=== PATIENT | female | born 1935 | race Caucasian/White ===

== ENCOUNTER 2017-12-12 12:02 | Outpatient (CLI) | payer MEDICARE, MEDICAID, SELFPAY ==
[2017-12-12 13:21] VITALS: BMI 31.0; BMI 68.3
--- NOTE | 2017-12-12 13:25 | XR_ITS ---
XR chest portable HISTORY: ITS.REASON: picc line placement ORDERING PHYSICIAN: Oracio Zapata MD PATIENT AGE: 82 years COMPARISON: 05/31/2012 FINDINGS: There is cardiomegaly without failure.. There are low lung volume with bibasilar atelectatic changes.. Left upper extremity PICC line has been inserted. The tip is in region of the right atrium and could be withdrawn approximately 4 cm No acute bony abnormalities. IMPRESSION: 1. PICC line tip in region of right atrium and should be withdrawn approximately 4 cm. 2. Mild cardiomegaly with bibasilar atelectasis
[2017-12-12 14:20] LABS: Basophils % 0.6 % (0.1-2.0); Eosinophils # 0.3 K/mm3 (0.0-0.4); Eosinophils % 3.9 % (0.1-12.0); Hematocrit 30.9 % (37.0-47.0); Hemoglobin 9.7 g/dL (12.2-16.2); Lymphocytes # 1.7 K/mm3 (0.7-4.5); Lymphocytes % 26.6 K/mm3 (10-50); Mean Corpuscular HGB Conc 31.4 g/dL (31.8-35.4); Mean Corpuscular Hemoglobin 28.1 pg (27.0-31.2); Mean Corpuscular Volume 89.5 fl (81-99); Mean Platelet Volume 7.2 fl (7.4-10.4); Monocytes # 0.5 K/mm3 (0.1-1.0); Monocytes % 7.1 % (1.7-9.3); Neutrophils % 61.9 % (37.0-80.0); Platelet Count 345 K/mm3 (142-424); Red Blood Count 3.45 M/mm3 (4.20-5.40); Red Cell Distribution Width 13.3 % (11.5-17.5); White Blood Count 6.5 K/mm3 (4.8-10.8)
[2017-12-12 14:22] LABS: Anion Gap 6.9 mEq/L (5-15); Blood Urea Nitrogen 34 mg/dL (7-18); Carbon Dioxide 34 mmol/L (21.0-32.0); Chloride 101 mmol/L (98-107); Creatinine Clearance Estimated 25 mL/min (0-300); Creatinine,Serum 1.34 mg/dL (0.55-1.02); Estimated Glomerular Filt Rate 38 ml/min (>60); GFR (African American) 46 ML/MIN (>60); Glucose 105 mg/dL (74-106); Potassium 3.9 mmoL/L (3.5-5.1); Sodium 138 mmol/L (136-145)
[2017-12-12 14:55] VITALS: BP 131/73; PULSE 54; RESP 18; TEMP 36.4
[2017-12-12 15:25] VITALS: BP 171/80; PULSE 51; RESP 18
[2017-12-12 15:55] VITALS: BP 174/75; PULSE 51; RESP 18
[2017-12-12 16:25] VITALS: BP 148/68; PULSE 51; RESP 18
[2017-12-12 16:55] VITALS: BP 164/79; PULSE 51; RESP 18
--- NOTE | 2017-12-12 17:35 | PC.NURSE ---
TOTAL VOLUME INCLUDES NS AND VANCOMYCIN.
== END 2017-12-12 17:25 | disposition home or self-care (01) ==
LOC: INF 12:10
PROVIDERS: PCP Internal Medicine Adolescent Medicine; Visit Provider Internal Medicine Adolescent Medicine
DX: A49.9 Bacterial infection, unspecified (principal)
CPT/HCPCS: 36569; 71045; 80048; 85025; 96365; 96366; C1751; J3370

== ENCOUNTER → 2017-12-14 15:29 | Outpatient (REF) | payer MEDICARE, MEDICAID, SELFPAY ==
[2017-12-14 16:54] LABS: Vancomycin,Trough 12.4 mcg/ml (10.0-20.0)
== END ==
LOC: LAB 15:29
PROVIDERS: Visit Provider Internal Medicine Adolescent Medicine
DX: N39.0 Urinary tract infection, site not specified (principal)
CPT/HCPCS: 80202

== ENCOUNTER 2019-04-08 11:35 | Inpatient (IN) ==
--- NOTE | 2019-04-08 11:30 | Emergency Department Note ---
ED Disposition Clinical Impression: Pneumonia, aspiration Qualifiers: Aspiration pneumonia type: due to gastric secretions Laterality: left Lung location: lower lobe of lung Qualified Code(s): J69.0 - Pneumonitis due to inhalation of food and vomit Disposition: Admitted As Inpatient Condition on Discharge: Fair Referrals: Oracio Zapata MD [Primary Care Provider] - - Critical Care Critical Care Time: No Attestation: On , the high probability of a clinically significant, sudden or life threatening deterioration of the following system(s) required my full and direct attention, intervention and personal management. The time I documented below is in addition to time spent performing reported procedures but includes the following listed in this critical care notation. Medical Decision Making - Alex Inquiry Pt receiving controlled substance: No Vital Signs: 04/08/19 11:05 04/08/19 11:23 04/08/19 11:24 Temperature 99.4 F Temperature Source Rectal Pulse Rate 66 Pulse Rate [Right Brachial] 68 69 Respiratory Rate 24 Blood Pressure [Right Arm] 117/82 160/51 H Blood Pressure Mean [Right Arm] 93 87 Blood Pressure Source [Right Arm] Automatic Cuff Automatic Cuff Blood Pressure Position [Right Arm] Sitting Sitting 02 Sat by Pulse Oximetry 90 L 93 L Oxygen Delivery Method Room Air 04/08/19 11:47 04/08/19 11:51 04/08/19 12:06 Temperature Temperature Source Pulse Rate Pulse Rate [Right Brachial] 78 72 70 Respiratory Rate Blood Pressure [Right Arm] 141/100 H 130/50 L 120/44 L Blood Pressure Mean [Right Arm] 113 76 69 Blood Pressure Source [Right Arm] Automatic Cuff Automatic Cuff Automatic Cuff Blood Pressure Position [Right Arm] Sitting Sitting Supine 02 Sat by Pulse Oximetry 96 96 94 L Oxygen Delivery Method Room Air Room Air Room Air 04/08/19 13:34 04/08/19 14:02 04/08/19 15:00 Temperature 98.6 F Temperature Source Oral Pulse Rate Pulse Rate [Right Brachial] 67 64 64 Respiratory Rate 22 Blood Pressure [Right Arm] 117/52 L 122/51 L 124/56 L Blood Pressure Mean [Right Arm] 73 74 78 Blood Pressure Source [Right Arm] Automatic Cuff Automatic Cuff Automatic Cuff Blood Pressure Position [Right Arm] Sitting Supine Supine 02 Sat by Pulse Oximetry 93 L 95 96 Oxygen Delivery Method Room Air Room Air Nasal Cannula 04/08/19 15:30 Temperature 98.5 F Temperature Source Oral Pulse Rate Pulse Rate [Right Brachial] 58 L Respiratory Rate 20 Blood Pressure [Right Arm] 103/60 L Blood Pressure Mean [Right Arm] 74 Blood Pressure Source [Right Arm] Automatic Cuff Blood Pressure Position [Right Arm] Supine 02 Sat by Pulse Oximetry 94 L Oxygen Delivery Method Nasal Cannula - Lab Data Lab Results 04/08/19 11:23: WBC 10.7, RBC 3.35 L, Hgb 9.2 L, Hct 29.1 L, MCV 86.8, MCH 27.4, MCHC 31.6 L, RDW 14.6, Plt Count 300, MPV 7.3 L, Neut % (Auto) 84.6 H, Lymph % (Auto) 9.1 L, [place] % (Auto) 5.3, Eos % (Auto) 0.9, Baso % (Auto) 0.1, Neut # (Auto) 9.0 H, Lymph # (Auto) 1.0, [place] # (Auto) 0.6, Eos # (Auto) 0.1, Baso # (Auto) 0.0 04/08/19 11:23: Sodium 144, Potassium 3.7, Chloride 106, Carbon Dioxide 30, Anion Gap 11.7, BUN 40 H, Creatinine 1.93 H, Estimated Creat Clear 32, Estimated GFR 25 L, Est GFR ( Amer) 30 L, Glucose 137 H, Calcium 8.7, Total Bilir ubin 0.2, AST 23, ALT 28, Alkaline Phosphatase 91, Troponin I 0.04, Total Protein 7.8, Albumin 3.3 L, Globulin 4.5 H, Albumin/Globulin Ratio 0.7 L, Carbamazepine 8.2, Phenobarbital 24.2 04/08/19 11:23: B-Natriuretic Peptide 425 H 04/08/19 11:23: Lipase 121 04/08/19 11:50: Urine Color Yellow, Urine Appearance Clear, Urine pH 6.0, Ur Specific [place] 1.010, Urine Protein Trace, Urine Glucose (UA) Negative, Urine Ketones Negative, Urine Blood Negative, Urine Nitrate Positive, Urine Bilirubin Negative, Urine Urobilinogen 0.2, Ur Leukocyte Esterase Negative, Urine WBC 5-10, Ur Squamous Epith Cells Occasional, Urine Bacteria 3+ 04/08/19 12:34: Lactate 1.1 Result diagrams: 04/08/19 11:23 04/08/19 11:23 Orders (Tests/Meds): ED MEDICATIONS Generic Name Dose Route Start Last Admin Trade Name Freq PRN Reason Stop Dose Admin Clindamycin Phosphate 900 mg/ 106 mls @ 100 mls/hr 04/08/19 13:45 Sodium Chloride IV 04/22/19 13:44 Q8H GIOVANNI Protocol Levofloxacin/Dextrose 750 mg in 150 mls @ 100 mls/hr 04/08/19 13:45 04/08/19 14:10 Levofloxacin 750mg/150ml Premix IV 04/22/19 13:44 100 mls/hr Q24H GIOVANNI Administration Protocol Discontinued Medications Generic Name Dose Route Start Last Admin Trade Name Freq PRN Reason Stop Dose Admin Albuterol/Ipratropium 3 ml 04/08/19 11:18 04/08/19 11:21 Duoneb 3ml [facility] 04/08/19 11:19 3 ml ONCE ONE Administration Sodium Chloride 3 ml 04/08/19 11:16 Sodium Chloride 3% 15ml [facility] 05/08/19 11:15 ONCE PRN INDUCE SPUTUM COLLECTION ORDERS Category Date Time Status CT head/brain wo con Stat Cat Scan 04/08/19 15:14 Ordered Levetiracetam (Keppra) Routine Lab 04/08/19 11:23 Received Blood Culture Stat Micro 04/08/19 12:34 Received Sputum Culture & Gram Stain Stat Micro 04/08/19 11:38 Results Urine Culture Stat Micro 04/08/19 11:50 Received - Radiology Data #1 Image(s): Chest Image Reviewed: Yes I reviewed the patient's radiology image, Yes I have reviewed radiologist's interpretation IMPRESSION: Right basilar atelectasis with left basilar atelectasis or infiltrate Dictated By: Serafin Carmona MD Signed By: <Electronically signed by Serafin Carmona MD in [place]> 04/08/19 1311 - CT Data CT Scan: Abdomen, Pelvis Time Received: 14:[address] Reviewed: Yes: I have viewed the radiologist's interpretation Findings Narrative: IMPRESSION: 1. Left lower lobe pneumonia. 2. Constipation. 3. Other nonacute findings as described above. 4. Cardiomegaly with pericardial effusion Dictated By: Serafin Carmona MD Signed By: <Electronically signed by Serafin Carmona MD in [place]> 04/08/19 1417 - ECG Data Tracing #1 EKG interpreted by Jf Chirinos MD: Rhythm: sinus Rate: 66 [place]: normal Ectopy: none Conduction: normal ST Segment Changes: Nonspecific, lateral T Wave Changes: Nonspecific, lateral Q Waves: none No evidence of acute ischemia or injury - Physician Consults Physician Consulted: Yovany Zapata Time: 14:30 Reason -: Admission Comment/Response: He will contact Supriya, nurse practitioner, to determine whether the patient can be treated at [facility] or needs to be admitted. Additional Consult: Yovany Time: 15:00 Reason -: Admission Comment/Response: Agrees to admit the patient to the hospital. We discussed the patient's clinical information, including history, exam, laboratory and radiology results and ED course. Per hospital procedure, I will write temporary bridge inpatient orders on the patient. Specific orders requested by the admitting physician: Continue clindamycin and Levaquin. Noncontrast head CT. General Adult HPI - General Chief complaint: Shortness of Breath/Dyspnea Stated complaint: possible aspiration pneumonia Time Seen by Provider: 04/08/19 11:33 Mode of Arrival: EMS Limitations: No Limitations Description of Symptoms (Recalled from ER Triage Doc. by RN): scale tester evaluated in pa and sent to er for rule out aspiration pneumonia and dehydration; states evidently had an increase in her seizure activity and that as far as she sees during eval, pt is at baseline for mentation, but believes she aspirated at some time over the weekend. - History of Present Illness HPI narrative: History reported to our nursing staff as above. There is no written narrative of current complaints included in her group home paperwork. The patient is unable to provide any additional history. - Related Data Home Medications Medication Instructions Recorded Confirmed Albuterol Sulfate [Albuterol 0.63 mg IH TID 12/12/17 04/08/19 Sulfate 0.63mg/3ml Neb] Apixaban [Eliquis] 2.5 mg PO BID 12/12/17 04/08/19 Benzonatate [Tessalon Perle 100mg 200 mg PO TID 12/12/17 04/08/19 Cap] Buspirone HCl [Buspar 10mg tablet] 10 mg PO BID 12/12/17 04/08/19 Dicyclomine HCl [Bentyl] 20 mg PO TID 12/12/17 04/08/19 Fluticasone Propionate [Flonase 1 spray NS DAILY 12/12/17 04/08/19 Allergy Relief NS] Furosemide [Furosemide 40MG tAB] 40 mg PO DAILY 12/12/17 04/08/19 Gabapentin [Gabapentin 100mg Cap] 100 mg PO TID 12/12/17 04/08/19 Loratadine [Claritin 10mg Tablet] 10 mg PO DAILY 12/12/17 04/08/19 Mag Hydrox/Aluminum Hyd/Simeth 30 ml PO BID 12/12/17 04/08/19 [Maalox 30ml UDC] Oseltamivir Phosphate [Tamiflu 75 mg PO DAILY 12/12/17 04/08/19 75mg Capsule] Oxybutynin Chloride [Ditropan Xl] 5 mg PO DAILY 12/12/17 04/08/19 PHENobarbital [PHENobarbital 32.4 mg PO BID 12/12/17 04/08/19 32.4mg Tablet] Pantoprazole Sodium [Protonix 40mg 40 mg PO DAILY 12/12/17 04/08/19 (granule) packet] Polyethylene Glycol 3350 [Miralax 17 gm PO DAILY 12/12/17 04/08/19 17gm Packet] Pravastatin Sodium [Pravachol 20mg 20 mg PO HS 12/12/17 04/08/19 Tablet] Sucralfate [Carafate 1gm Tab] 1 gm PO ACHS 12/12/17 04/08/19 Tizanidine HCl [Zanaflex] 2 mg PO Q8HP PRN 12/12/17 04/08/19 carBAMazepine [Tegretol] 200 mg PO BID 12/12/17 04/08/19 guaiFENesin [Mucinex] 600 mg PO BID 12/12/17 04/08/19 levETIRAcetam [Keppra 500mg tablet] 500 mg PO DAILY 12/12/17 04/08/19 Allergies Allergy/AdvReac Type Severity Reaction Status Date / Time No Known Allergies Allergy Unverified 04/08/19 13:42 [facility] History - Hepatitis A Screen Drug use history?: No High risk sexual behaviors?: No History of sexually transmitted infection?: No Currently employed?: No Childcare worker?: No Do you have indoor plumbing?: Yes Do you have electricity?: Yes Attestation statement:: This patient has been screened for Hepatitis A risk factors. Medical History: Reports:: Congestive Heart Failure, Cerebrovascular Accident (with residual R hemiparesis), Gastroesophageal Reflux Disease(GERD), Seizures Denies:: Diabetes Mellitus Type 1, Diabetes Mellitus Type 2 Other Medical History: Reports: Other (cerebral palsy, MR) - Social History Educational Level: Completed High School Smoking Status: Unknown if ever smoked Alcohol Intake: never Occupational Status: disabled - Psychiatric History Expresses thoughts of harming self/others: None Suicide Plan Description: No Plan ROS Obtained: Yes unobtainable due to mental condition Physical Exam - General General appearance: alert, in no apparent distress - Head Head exam: atraumatic, normocephalic - Eye Eye exam: Present: normal appearance, EOMI - ENT ENT exam: Present: mucous membranes moist - Neck Neck exam: Present: normal inspection. Absent: trachea midline - Chest Chest inspection: Present: normal inspection, symmetric chest wall rise - Respiratory Respiratory exam: Present: other (Rattling upper airway sounds and rattling cough) - Cardiovascular Cardiovascular exam: Present: regular rate, normal rhythm, normal heart sounds - Abdominal Exam Abdominal exam: Present: soft, tenderness, guarding Abdominal tenderness: Present: diffuse - Extremities Exam Extremities exam: Present: pedal edema (3+) - Neurological Exam Neurological exam: Present: alert, motor sensory deficit (Right hemiparesis) - Skin Skin exam: Present: warm, dry
[2019-04-08 11:45] LABS: Basophils % 0.1 % (0.1-2.0); Eosinophils # 0.1 K/mm3 (0.0-0.4); Eosinophils % 0.9 % (0.1-12.0); Hematocrit 29.1 % (37.0-47.0); Hemoglobin 9.2 g/dL (12.2-16.2); Lymphocytes % 9.1 % (10-50); Mean Corpuscular HGB Conc 31.6 g/dL (31.8-35.4); Mean Corpuscular Hemoglobin 27.4 pg (27.0-31.2); Mean Corpuscular Volume 86.8 fl (81-99); Mean Platelet Volume 7.3 fl (7.4-10.4); Monocytes # 0.6 K/mm3 (0.1-1.0); Monocytes % 5.3 % (1.7-9.3); Neutrophils % 84.6 % (37.0-80.0); Platelet Count 300 K/mm3 (142-424); Red Blood Count 3.35 M/mm3 (4.20-5.40); Red Cell Distribution Width 14.6 % (11.5-17.5); White Blood Count 10.7 K/mm3 (4.8-10.8)
[2019-04-08 11:53] LABS: Microscopic, Urine URINE MICROSCOPIC (MICROSCOPIC)
[2019-04-08 11:56] LABS: Appearance,Urine CLEAR (Clear); Bilirubin,Urine Negative (Negative); Blood, Urine Negative (Negative); Color,Urine YELLOW (Yellow); Glucose,Urine (UA) Negative (Negative); Ketones,Urine Negative (Negative); Leukocyte Esterase,Urine Negative (Negative); Protein,Urine TRACE (Negative); Urobilinogen,Urine 0.2 EU/dl (0.2)
[2019-04-08 12:00] LABS: Albumin Level 3.3 gm/dL (3.4-5.0); Albumin/Globulin Ratio 0.7 (1.1-1.8); Anion Gap 11.7 mEq/L (5-15); Bilirubin,Total 0.2 mg/dL (0.2-1.0); Calcium 8.7 mg/dL (8.5-10.1); Carbamazepine (Tegretol) 8.2 ug/ml (4.0-12.0); Globulin 4.5 gm/dl (1.3-3.2); Potassium 3.7 mmoL/L (3.5-5.1); Total Protein,Serum 7.8 gm/dL (6.4-8.2)
[2019-04-08 12:29] LABS: Bacteria,Urine 3+ /lpf; Squamous Epithelial Cell,Urine Occasional #/hpf (0-5)
--- NOTE | 2019-04-08 16:39 | History & Physical Report ---
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 In the ED, she was found to be dehydrated with creatinine 1.93 up from baseline of 1 with LLL pneumonia. Patient has reportedly had increased seizure activity the last few days that manifests as "starring off" and "inability to bear weight." Most have occurred after defecation and are most likely vasovagal in nature. CT head showed no acute pathology. Phenobarbital and Keppra levels were therapeutic. Patient was admitted for IV antibiotics and further evaluation. [facility] History I have reviewed the patient's past medical history: Yes Medical History: Reports:: Congestive Heart Failure, Cerebrovascular Accident (with residual R hemiparesis), Gastroesophageal Reflux Disease(GERD), Seizures Denies:: Diabetes Mellitus Type 1, Diabetes Mellitus Type 2 Other Medical History: Reports: Other (cerebral palsy, MR) - *Social History Educational Level: Completed High School Smoking Status: Unknown if ever smoked Alcohol Intake: never *Occupational Status:: disabled *Travel in the last 8 weeks: None - Psychiatric History Expresses thoughts of harming self/others: None Suicide Plan Description: No Plan Family Hx:: Unable to obtain Review of Systems - Review of Systems Review of systems:: pertinent systems reviewed and negative unless documented below - Constitutional Reports fever(s), Reports malaise - *Respiratory Reports chest congestion, Reports cough - *Neurologic Reports abnormal speech, Reports weakness, Reports other Comments: mental status changes, lethargy, right arm flaccid at baseline, speech garbled beyond baseline, facial droop Meds Home Medications Medication Instructions Recorded Confirmed Type Albuterol Sulfate [Albuterol 0.63 mg IH TID 12/12/17 04/08/19 History Sulfate 0.63mg/3ml Neb] Apixaban [Eliquis] 2.5 mg PO BID 12/12/17 04/08/19 History Benzonatate [Tessalon Perle 100mg 200 mg PO TID 12/12/17 04/08/19 History Cap] Buspirone HCl [Buspar 10mg tablet] 10 mg PO BID 12/12/17 04/08/19 History Dicyclomine HCl [Bentyl] 20 mg PO TID 12/12/17 04/08/19 History Fluticasone Propionate [Flonase 1 spray NS DAILY 12/12/17 04/08/19 History Allergy Relief NS] Furosemide [Furosemide 40MG tAB] 40 mg PO DAILY 12/12/17 04/08/19 History Gabapentin [Gabapentin 100mg Cap] 100 mg PO TID 12/12/17 04/08/19 History Loratadine [Claritin 10mg Tablet] 10 mg PO DAILY 12/12/17 04/08/19 History Mag Hydrox/Aluminum Hyd/Simeth 30 ml PO BID 12/12/17 04/08/19 History [Maalox 30ml UDC] Oseltamivir Phosphate [Tamiflu 75 mg PO DAILY 12/12/17 04/08/19 History 75mg Capsule] Oxybutynin Chloride [Ditropan Xl] 5 mg PO DAILY 12/12/17 04/08/19 History PHENobarbital [PHENobarbital 32.4 mg PO BID 12/12/17 04/08/19 History 32.4mg Tablet] Pantoprazole Sodium [Protonix 40mg 40 mg PO DAILY 12/12/17 04/08/19 History (granule) packet] Polyethylene Glycol 3350 [Miralax 17 gm PO DAILY 12/12/17 04/08/19 History 17gm Packet] Pravastatin Sodium [Pravachol 20mg 20 mg PO HS 12/12/17 04/08/19 History Tablet] Sucralfate [Carafate 1gm Tab] 1 gm PO ACHS 12/12/17 04/08/19 History Tizanidine HCl [Zanaflex] 2 mg PO Q8HP PRN 12/12/17 04/08/19 History carBAMazepine [Tegretol] 200 mg PO BID 12/12/17 04/08/19 History guaiFENesin [Mucinex] 600 mg PO BID 12/12/17 04/08/19 History levETIRAcetam [Keppra 500mg tablet] 500 mg PO DAILY 12/12/17 04/08/19 History Allergies Allergy/AdvReac Type Severity Reaction Status Date / Time No Known Allergies Allergy Unverified 04/08/19 13:42 Exam Vital signs and Labs for Last 24 Hours: Temp Pulse Resp BP Pulse Ox 98.5 F 58 L 20 103/60 L 94 L 04/08/19 15:30 04/08/19 15:30 04/08/19 15:30 04/08/19 15:30 04/08/19 15:30 Laboratory Results - last 24 hr 04/08/19 11:23: WBC 10.7, RBC 3.35 L, Hgb 9.2 L, Hct 29.1 L, MCV 86.8, MCH 27.4, MCHC 31.6 L, RDW 14.6, Plt Count 300, MPV 7.3 L, Neut % (Auto) 84.6 H, Lymph % (Auto) 9.1 L, [place] % (Auto) 5.3, Eos % (Auto) 0.9, Baso % (Auto) 0.1, Neut # (Auto) 9.0 H, Lymph # (Auto) 1.0, [place] # (Auto) 0.6, Eos # (Auto) 0.1, Baso # (Auto) 0.0 04/08/19 11:23: Sodium 144, Potassium 3.7, Chloride 106, Carbon Dioxide 30, Anion Gap 11.7, BUN 40 H, Creatinine 1.93 H, Estimated Creat Clear 32, Estimated GFR 25 L, Est GFR ( Amer) 30 L, Glucose 137 H, Calcium 8.7, Total Bilirubin 0.2, AST 23, ALT 28, Alkaline Phosphatase 91, Troponin I 0.04, Total Protein 7.8, Albumin 3.3 L, Globulin 4.5 H, Albumin/Globulin Ratio 0.7 L, Carbamazepine 8.2, Phenobarbital 24.2 04/08/19 11:23: B-Natriuretic Peptide 425 H 04/08/19 11:23: Lipase 121 04/08/19 11:50: Urine Color Yellow, Urine Appearance Clear, Urine pH 6.0, Ur Specific [place] 1.010, Urine Protein Trace, Urine Glucose (UA) Negative, Urine Ketones Negative, Urine Blood Negative, Urine Nitrate Positive, Urine Bilirubin Negative, Urine Urobilinogen 0.2, Ur Leukocyte Esterase Negative, Urine WBC 5- 10, Ur Squamous Epith Cells Occasional, Urine Bacteria 3+ 04/08/19 12:34: Lactate 1.1 I & O for Last 24 hours: Intake & Output 04/06/19 04/07/19 04/08/19 04/09/19 11:59 11:59 11:59 11:59 Weight 200 lb Microbiology Reports for the Last 24 Hours: Microbiology 04/08/19 11:38 Sputum - Expectorated Sputum Gram Stain - Final Narrative: Lethargic, opens eyes to name and closes again. Minimally verbal, difficult to understand, garbled worse than baseline. facial droop at baseline. RUE flaccid at baseline, minimal movement LE at baseline. Rate and rhythm regular. Lung sounds with rhonchi throughout, copious secretions noted in mouth. Pupils reactive to light, equal bilateral, abdomen soft and diffusely tender. Assessment and Plan (1) History of CVA with residual deficit Current visit: Yes Status: Chronic Category: Medical Code(s): I69.30 - Unspecified sequelae of cerebral infarction (2) Hemiplegic cerebral palsy Current visit: Yes Status: Chronic Category: Medical Code(s): G80.8 - Other cerebral palsy (3) Seizure disorder Current visit: Yes Status: Chronic Category: Medical Code(s): G40.909 - Epilepsy, unspecified, not intractable, without status epilepticus (4) Change in mental status Current visit: Yes Status: Acute Category: Medical Code(s): R41.82 - Altered mental status, unspecified (5) Pneumonia, aspiration Current visit: Yes Status: Acute Qualifiers: Aspiration pneumonia type: due to gastric secretions Laterality: left Lung location: lower lobe of lung Qualified Code(s): J69.0 - Pneumonitis due to inhalation of food and vomit Category: Medical Code(s): J69.0 - Pneumonitis due to inhalation of food and vomit - Assessment and plan all Dx Assessment and Plan for all problems:: Admit on aspiration pneumonia abx coverage. Sputum cx pending. Speech therapy to evaluate after improvement of mental status. Please note, extensive conversation with family regarding code status which was changed to DNR this am.
--- NOTE | 2019-04-09 07:52 | Pharmacy Consult Notes ---
[facility] Pharmacy VTE Monitoring - Patient Demographics Admission date: 04/08/19 Report Date: 04/09/19 Time: 07:52 Allergies/Adverse Reactions: Patient Allergies No Known Allergies Allergy (Unverified 04/08/19 13:42) Height: 1.57 m Weight: 78.925 kg Patient Problems: Current Active Problems (Updated 04/08/19 @ 16:49 by Leandra Dang APRN) Pneumonia, aspiration (Acute) History of CVA with residual deficit (Chronic) Hemiplegic cerebral palsy (Chronic) Seizure disorder (Chronic) Change in mental status (Acute) - VTE Risk Labs: VTE Related Lab Results Hgb 9.2 g/dL (12.2-16.2) L 04/08/19 11:23 Hct 29.1 % (37.0-47.0) L 04/08/19 11:23 Plt Count 300 K/mm3 (142-424) 04/08/19 11:23 BUN 40 mg/dL (7-18) H 04/08/19 11:23 Creatinine 1.93 mg/dL (0.55-1.02) H 04/08/19 11:23 Estimated Creat Clear 32 mL/min (50-200) 04/08/19 11:23 Was VTE Risk Assessment Performed: Yes VTE Score: 7 VTE Risk Level: Moderate Risk Clinical Trial Participant: No - Prophylaxis VTE Prophylaxis Ordered?: Yes Types of VTE Prophylaxis: TEDS Knee High Location of Applied Device: Right Leg, Left Leg
--- NOTE | 2019-04-09 08:24 | Progress Note ---
Internal Medicine - PN: Subj *Date: 04/09/19 *Time: 08:21 Interval history: Patient slept a little bit through the night. Has been suffering with a lot of congestion, cough. Has not been eating well. Has been drinking some liquids through a straw. Exam Vital signs and Labs for Last 24 Hours: Temp Pulse Resp BP Pulse Ox 98.9 F 64 16 131/73 98 04/09/19 04:00 04/09/19 04:00 04/09/19 04:00 04/09/19 04:00 04/09/19 04:00 Laboratory Results - last 24 hr 04/08/19 11:23: WBC 10.7, RBC 3.35 L, Hgb 9.2 L, Hct 29.1 L, MCV 86.8, MCH 27.4, MCHC 31.6 L, RDW 14.6, Plt Count 300, MPV 7.3 L, Neut % (Auto) 84.6 H, Lymph % (Auto) 9.1 L, [place] % (Auto) 5.3, Eos % (Auto) 0.9, Baso % (Auto) 0.1, Neut # (Auto) 9.0 H, Lymph # (Auto) 1.0, [place] # (Auto) 0.6, Eos # (Auto) 0.1, Baso # (Auto) 0.0 04/08/19 11:23: Sodium 144, Potassium 3.7, Chloride 106, Carbon Dioxide 30, Anion Gap 11.7, BUN 40 H, Creatinine 1.93 H, Estimated Creat Clear 32, Estimated GFR 25 L, Est GFR ( Amer) 30 L, Glucose 137 H, Calcium 8.7, Total Bilirubin 0.2, AST 23, ALT 28, Alkaline Phosphatase 91, Troponin I 0.04, Total Protein 7.8, Albumin 3.3 L, Globulin 4.5 H, Albumin/Globulin Ratio 0.7 L, Carbamazepine 8.2, Phenobarbital 24.2 04/08/19 11:23: B-Natriuretic Peptide 425 H 04/08/19 11:23: Lipase 121 04/08/19 11:50: Urine Color Yellow, Urine Appearance Clear, Urine pH 6.0, Ur Specific [place] 1.010, Urine Protein Trace, Urine Glucose (UA) Negative, Urine Ketones Negative, Urine Blood Negative, Urine Nitrate Positive, Urine Bilirubin Negative, Urine Urobilinogen 0.2, Ur Leukocyte Esterase Negative, Urine WBC 5- 10, Ur Squamous Epith Cells Occasional, Urine Bacteria 3+ 04/08/19 12:34: Lactate 1.1 I & O for Last 24 hours: Intake & Output 04/06/19 04/07/19 04/08/19 04/09/19 11:59 11:59 11:59 11:59 Intake Total 666 / 666 Output Total 1075 / 1075 Balance -409 / -409 Weight 200 lb 174 lb Microbiology Reports for the Last 24 Hours: Microbiology 04/08/19 11:50 Urine,Random Urine Culture - Preliminary 04/08/19 11:38 Sputum - Expectorated Sputum Gram Stain - Final Narrative: Patient is awake. Does respond to some commands. Does seem to recognize me. Previously noted right-sided facial drooping and right arm palsy from her history of stroke disease. Lungs have lots of rhonchi and crackles throughout her lung villalta. Heart rate almost an audible because of these rhonchi. Abdomen soft. Edema noted in extremities as previously. Previous neurologic exam changes noted. Assessment and Plan (1) History of CVA with residual deficit Current visit: Yes Status: Chronic Category: Medical Code(s): I69.30 - Unspecified sequelae of cerebral infarction (2) Hemiplegic cerebral palsy Current visit: Yes Status: Chronic Category: Medical Code(s): G80.8 - Other cerebral palsy (3) Seizure disorder Current visit: Yes Status: Chronic Category: Medical Code(s): G40.909 - Epilepsy, unspecified, not intractable, without status epilepticus (4) Change in mental status Current visit: Yes Status: Acute Category: Medical Code(s): R41.82 - Altered mental status, unspecified (5) Pneumonia, aspiration Current visit: Yes Status: Acute Qualifiers: Aspiration pneumonia type: due to gastric secretions Laterality: left Lung location: lower lobe of lung Qualified Code(s): J69.0 - Pneumonitis due to inhalation of food and vomit Category: Medical Code(s): J69.0 - Pneumonitis due to inhalation of food and vomit Continue IV therapy. Add Mucomyst for sputum clearance. (6) Hypoxia Current visit: Yes Status: Acute Category: Medical Code(s): R09.02 - Hypoxemia Given pericardial effusion on CT scan we will check echo today. Continue oxygen support. Continue current therapy with IV antibiotics. (7) Chronic anemia Current visit: Yes Status: Acute Category: Medical Code(s): D64.9 - Anemia, unspecified Secondary to chronic disease. (8) Chronic renal disease, stage 3, moderately decreased glomerular filtration rate (GFR) between 30-59 mL/min/1.73 square meter Current visit: Yes Status: Acute Category: Medical Code(s): N18.3 - Chronic kidney disease, stage 3 (moderate) Chronic disease issues. Follow creatinine closely. (9) CHF (congestive heart failure) Current visit: Yes Status: Acute Category: Medical Code(s): I50.9 - Heart failure, unspecified Uncertain etiology of CHF. Echo today given pericardial effusion
[2019-04-10 07:03] LABS: Basophils % 0.3 % (0.1-2.0); Eosinophils # 0.1 K/mm3 (0.0-0.4); Eosinophils % 1.1 % (0.1-12.0); Hematocrit 26.5 % (37.0-47.0); Hemoglobin 8.3 g/dL (12.2-16.2); Lymphocytes # 1.5 K/mm3 (0.7-4.5); Lymphocytes % 26.5 % (10-50); Mean Corpuscular HGB Conc 31.2 g/dL (31.8-35.4); Mean Corpuscular Volume 86.5 fl (81-99); Mean Platelet Volume 7.3 fl (7.4-10.4); Monocytes # 0.5 K/mm3 (0.1-1.0); Monocytes % 8.9 % (1.7-9.3); Neutrophils # 3.7 K/mm3 (1.8-7.8); Neutrophils % 63.3 % (37.0-80.0); Platelet Count 249 K/mm3 (142-424); Red Blood Count 3.06 M/mm3 (4.20-5.40); Red Cell Distribution Width 14.6 % (11.5-17.5); White Blood Count 5.8 K/mm3 (4.8-10.8)
[2019-04-10 07:42] LABS: Anion Gap 13.2 mEq/L (5-15); Calcium 8.5 mg/dL (8.5-10.1); Potassium 3.2 mmoL/L (3.5-5.1)
--- NOTE | 2019-04-10 09:09 | Progress Note ---
Internal Medicine - PN: Subj *Date: 04/10/19 *Time: 08:00 Interval history: Patient is resting in bed, opens eyes to name. Denies pain. More responsive this morning. Exam Vital signs and Labs for Last 24 Hours: Temp Pulse Resp BP Pulse Ox 98.6 F 70 16 193/54 H 100 04/10/19 08:00 04/10/19 08:00 04/10/19 08:00 04/10/19 08:00 04/10/19 08:00 Laboratory Results - last 24 hr 04/08/19 11:50: Urine Color Yellow, Urine Appearance Clear, Urine pH 6.0, Ur Specific [place] 1.010, Urine Protein Trace, Urine Glucose (UA) Negative, Urine Ketones Negative, Urine Blood Negative, Urine Nitrate Positive, Urine Bilirubin Negative, Urine Urobilinogen 0.2, Ur Leukocyte Esterase Negative, Urine WBC 5- 10, Ur Squamous Epith Cells Occasional, Urine Bacteria 3+ 04/10/19 05:35: WBC 5.8 D, RBC 3.06 L, Hgb 8.3 L, Hct 26.5 L, MCV 86.5, MCH 27.0, MCHC 31.2 L, RDW 14.6, Plt Count 249, MPV 7.3 L, Neut % (Auto) 63.3, Lymph % (Auto) 26.5, [place] % (Auto) 8.9, Eos % (Auto) 1.1, Baso % (Auto) 0.3, Neut # (Auto) 3.7, Lymph # (Auto) 1.5, [place] # (Auto) 0.5, Eos # (Auto) 0.1, Baso # (Auto) 0.0 04/10/19 05:35: Sodium 146 H, Potassium 3.2 L, Chloride 108 H, Carbon Dioxide 28, Anion Gap 13.2, BUN 30 H, Creatinine 1.50 H D, Estimated Creat Clear 35, Estimated GFR 33 L, Est GFR ( Amer) 40 L D, Glucose 92, Calcium 8.5 I & O for Last 24 hours: Intake & Output 04/07/19 04/08/19 04/09/19 04/10/19 11:59 11:59 11:59 11:59 Intake Total 906 / 906 1374 / 1374 Output Total 1075 / 1075 1999 Balance -169 / -169 -626 / -626 Weight 200 lb 174 lb 171 lb 5 oz Microbiology Reports for the Last 24 Hours: Microbiology 04/08/19 11:38 Sputum - Expectorated Sputum Gram Stain - Final 04/08/19 11:38 Sputum - Expectorated Sputum Sputum Culture - Preliminary 04/08/19 11:50 Urine,Random Urine Culture - Preliminary Gram Negative Rods Gram Negative Rods#2 Narrative: Alert and oriented at baseline. Remains a little drowsy, but significant improvement. Anterior lung villalta with loose rhonchi, improved. Abdomen soft with diffuse tenderness which is a chronic issue. Minimal movement LE at baseline. RUE flaccid at baseline. Speech garbled at baseline with chronic facial drop. Obvious cognitive disability, states "bye you" upon exiting the room Assessment and Plan (1) History of CVA with residual deficit Current visit: Yes Status: Chronic Category: Medical Code(s): I69.30 - Unspecified sequelae of cerebral infarction (2) Hemiplegic cerebral palsy Current visit: Yes Status: Chronic Category: Medical Code(s): G80.8 - Other cerebral palsy (3) Seizure disorder Current visit: Yes Status: Chronic Category: Medical Code(s): G40.909 - Epilepsy, unspecified, not intractable, without status epilepticus (4) Change in mental status Current visit: Yes Status: Acute Category: Medical Code(s): R41.82 - Altered mental status, unspecified (5) Pneumonia, aspiration Current visit: Yes Status: Acute Qualifiers: Aspiration pneumonia type: due to gastric secretions Laterality: left Lung location: lower lobe of lung Qualified Code(s): J69.0 - Pneumonitis due to inhalation of food and vomit Category: Medical Code(s): J69.0 - Pneumonitis due to inhalation of food and vomit (6) Hypoxia Current visit: Yes Status: Acute Category: Medical Code(s): R09.02 - Hypoxemia (7) Chronic anemia Current visit: Yes Status: Acute Category: Medical Code(s): D64.9 - Anemia, unspecified (8) Chronic renal disease, stage 3, moderately decreased glomerular filtration rate (GFR) between 30-59 mL/min/1.73 square meter Current visit: Yes Status: Acute Category: Medical Code(s): N18.3 - Chronic kidney disease, stage 3 (moderate) (9) CHF (congestive heart failure) Current visit: Yes Status: Acute Category: Medical Code(s): I50.9 - Heart failure, unspecified - Assessment and plan all Dx Assessment and Plan for all problems:: Improving. Urine cx is growing gram - rods. Continue broad spectrum abx pending sensitivity. Add 20 MEQ KCL to IVF's. Transfuse with one unit PRBC today. Recheck labs in the am. Speech therapy to repeat bedside swallowing eval tomorrow-of note patient has not had a Gtube in the past.
--- NOTE | 2019-04-10 16:49 | Cardiology Report ---
PROCEDURE: 2-D M-mode and color Doppler study INDICATIONS FOR THE TEST: Chest pain COPD Heart Murmur Tobacco Smoking Palpitations Fatigue Syncope Edema Hypertension+Diabetes Mellitus Rheumatic Fever SOB+ABDALLA Obesity Hyperlipidemia Family History HD Additional History ASP. PNEUMONIA, CKD, CHF, HX CVA TDS-PT UPRIGHT IN BED, COUGHING PATIENT INFORMATION HEIGHT: 61 WEIGHT:174 GENDER: Female B/P:131/73 2-D/M-MODE INTERPRETATION: 2-D MEASUREMENTS OBSERVED VALUES IN CMS Right Ventricular Dimension (RVDd) 3.0 Interventricular Septum (Thickness)(IVsd) 1.0 Left Ventricular Internal Dimensions(LVIDd) 5.3 Left Ventricular Posterior Wall (Thickness)(LVPWd) 1.0 Aortic Root 1.8 Aortic Cusp Separation 1.3 Left Atrial Dimensions (LAD) 3.9 2D 1. Left atrium is mildly enlarged, left ventricle is normal size, there is mild concentric left ventricular hypertrophy, there is hyperdynamic left ventricular systolic function, visually estimated ejection fraction over 65%, there is complete cavity obliteration during systole. 2. The right atrium and right ventricle are mildly enlarged with normal contractility. 3. The aortic valve is thickened and calcified leaflet continue to display mobility. 4. The mitral and tricuspid valve leaflets are minimally thickened. 5. The pulmonic valve is poorly visualized. 6. Small pericardial effusion noted. DOPPLER INTERROGATION: Doppler interrogation of the aortic, mitral and tricuspid valvular presence of mild mitral and tricuspid regurgitation, tricuspid regurgitation jet velocity is inadequate for calculation of the right ventricular systolic pressure, grade 1 diastolic dysfunction seen without tissue Doppler evidence of raised left atrial pressure, inferior vena cava is not well visualized. CONCLUSION: 1. Mildly enlarged left atrium, normal left ventricular size, mild concentric left ventricular hypertrophy, hyperdynamic left ventricular systolic function, visually estimated ejection fraction over 65%, there is complete cavity obliteration during systole, grade 1 diastolic dysfunction seen without tissue Doppler evidence of raised left atrial pressure. 2. Mildly enlarged right ventricle with normal contractility. 3. Thickened and calcified aortic valve without aortic stenosis aortic insufficiency. 4. Mild mitral and tricuspid regurgitation 5. Small pericardial effusion noted.
[2019-04-10 17:18] LABS: Hematocrit 30.2 % (37.0-47.0)
[2019-04-10 17:34] LABS: Hemoglobin 9.9 g/dL (12.2-16.2)
[2019-04-11 05:58] LABS: Basophils % 0.3 % (0.1-2.0); Eosinophils % 0.6 % (0.1-12.0); Hematocrit 29.1 % (37.0-47.0); Hemoglobin 9.6 g/dL (12.2-16.2); Lymphocytes # 1.5 K/mm3 (0.7-4.5); Lymphocytes % 22.2 % (10-50); Mean Corpuscular HGB Conc 32.8 g/dL (31.8-35.4); Mean Corpuscular Hemoglobin 28.2 pg (27.0-31.2); Mean Corpuscular Volume 85.8 fl (81-99); Mean Platelet Volume 6.9 fl (7.4-10.4); Monocytes # 0.6 K/mm3 (0.1-1.0); Monocytes % 9.6 % (1.7-9.3); Neutrophils # 4.4 K/mm3 (1.8-7.8); Neutrophils % 67.3 % (37.0-80.0); Platelet Count 255 K/mm3 (142-424); Red Blood Count 3.39 M/mm3 (4.20-5.40); Red Cell Distribution Width 14.6 % (11.5-17.5); White Blood Count 6.5 K/mm3 (4.8-10.8)
[2019-04-11 06:05] LABS: Anion Gap 13.2 mEq/L (5-15); Calcium 8.5 mg/dL (8.5-10.1); Potassium 3.2 mmoL/L (3.5-5.1)
--- NOTE | 2019-04-11 07:06 | Discharge Summary ---
General - General Admission date:: 04/08/19 Discharge date: 04/11/19 HPI HPI: 84 year old female with a h/o hemiplegic cerebral palsy with associated MR, seizure disorder, CVA, HTN and recurrent UTI who was found to be febrile, tmax 102, lethargic, tachypneic and mildly hypoxic with mental status changes this am was sent to the ED for evaluation. In the ED, she was found to be dehydrated with creatinine 1.93 up from baseline of 1 with LLL pneumonia. Patient has reportedly had increased seizure activity the last few days that manifests as "starring off" and "inability to bear weight." Most have occurred after defecation and are most likely vasovagal in nature. CT head showed no acute pathology. Phenobarbital and Keppra levels were therapeutic. Patient was admitted for IV antibiotics and further evaluation. Hospital Course Hospital Course: Ms. Cabrera is an 84-year-old female admitted for worsening confusion, weakness, debility. Found to have concern for an aspiration pneumonitis/pneumonia and urinary tract infection. Work-up during admission showed ESBL E. coli uti sensitive to Invanz, Bactrim, Zosyn, and augmentin. Initiated on Invanz on day of discharge due to concern for developing resistance to other antibiotics. During admission was also worked up for her concern for aspiration/swallowing deficiency. Work-up showed silent aspiration with a failed swallow. Had multiple discussions with family at bedside, sister, who expressed patient's wishes of comfort and quality over more aggressive measures such as a G-tube. Eating was determined to be important to the patient regardless of the findings of swallow studies. Therefore decision was made to not do any further swallow studies as it would not change our management, in the setting of family being aware that this puts the patient at risk for further aspiration and therefore further infection and possible life shortening complications. Patient remained afebrile during admission, on baseline oxygen requirement. Tolerating regular oral medications with strong cough. Significant improvement in mentation. Stable for discharge back to her senior care for continued care. Objective Vital signs: Temp Pulse Resp BP Pulse Ox 98.9 F 72 20 175/74 H 97 04/11/19 04:00 04/11/19 05:54 04/11/19 04:00 04/11/19 04:00 04/11/19 05:54 Narrative: Alert and oriented at baseline. Remains a little drowsy, but improved Anterior lung villalta with loose rhonchi, improved Abdomen soft with diffuse tenderness which is a chronic issue Minimal movement LE at baseline. RUE flaccid at baseline Speech garbled at baseline with chronic facial drop Obvious cognitive disability, states answers questions with <50% understandable language. Results Labs on day of discharge: Labs from last 24 hours 04/11/19 04/11/19 04/10/19 05:25 05:25 17:03 WBC 6.5 RBC 3.39 L Hgb 9.6 L 9.9 L D Hct 29.1 L 30.2 L MCV 85.8 MCH 28.2 MCHC 32.8 RDW 14.6 Plt Count 255 MPV 6.9 L Neut % (Auto) 67.3 Lymph % (Auto) 22.2 [place] % (Auto) 9.6 H Eos % (Auto) 0.6 Baso % (Auto) 0.3 Neut # (Auto) 4.4 Lymph # (Auto) 1.5 [place] # (Auto) 0.6 Eos # (Auto) 0.0 Baso # (Auto) 0.0 Sodium 145 Potassium 3.2 L Chloride 108 H Carbon Dioxide 27 Anion Gap 13.2 BUN 22 H D Creatinine 1.31 H Estimated Creat Clear 41 Estimated GFR 39 L Est GFR ( Amer) 47 L Glucose 116 H D Calcium 8.5 Urine Color Urine Appearance Urine pH Ur Specific [place] Urine Protein Urine Glucose (UA) Urine Ketones Urine Blood Urine Nitrate Urine Bilirubin Urine Urobilinogen Ur Leukocyte Esterase Urine WBC Ur Squamous Epith Cells Urine Bacteria Blood Type Blood Type Confirm Antibody Screen Crossmatch ([facility]) 04/10/19 04/10/19 04/10/19 11:25 10:18 05:35 WBC RBC Hgb Hct MCV MCH MCHC RDW Plt Count MPV Neut % (Auto) Lymph % (Auto) [place] % (Auto) Eos % (Auto) Baso % (Auto) Neut # (Auto) Lymph # (Auto) [place] # (Auto) Eos # (Auto) Baso # (Auto) Sodium 146 H Potassium 3.2 L Chloride 108 H Carbon Dioxide 28 Anion Gap 13.2 BUN 30 H Creatinine 1.50 H D Estimated Creat Clear 35 Estimated GFR 33 L Est GFR ( Amer) 40 L D Glucose 92 Calcium 8.5 Urine Color Urine Appearance Urine pH Ur Specific [place] Urine Protein Urine Glucose (UA) Urine Ketones Urine Blood Urine Nitrate Urine Bilirubin Urine Urobilinogen Ur Leukocyte Esterase Urine WBC Ur Squamous Epith Cells Urine Bacteria Blood Type A Negative Blood Type Confirm A Negative Antibody Screen Negative Crossmatch ([facility]) See Detail 04/10/19 04/08/19 05:35 11:50 WBC 5.8 D RBC 3.06 L Hgb 8.3 L Hct 26.5 L MCV 86.5 MCH 27.0 MCHC 31.2 L RDW 14.6 Plt Count 249 MPV 7.3 L Neut % (Auto) 63.3 Lymph % (Auto) 26.5 [place] % (Auto) 8.9 Eos % (Auto) 1.1 Baso % (Auto) 0.3 Neut # (Auto) 3.7 Lymph # (Auto) 1.5 [place] # (Auto) 0.5 Eos # (Auto) 0.1 Baso # (Auto) 0.0 Sodium Potassium Chloride Carbon Dioxide Anion Gap BUN Creatinine Estimated Creat Clear Estimated GFR Est GFR ( Amer) Glucose Calcium Urine Color Yellow Urine Appearance Clear Urine pH 6.0 Ur Specific [place] 1.010 Urine Protein Trace Urine Glucose (UA) Negative Urine Ketones Negative Urine Blood Negative Urine Nitrate Positive Urine Bilirubin Negative Urine Urobilinogen 0.2 Ur Leukocyte Esterase Negative Urine WBC 5-10 Ur Squamous Epith Cells Occasional Urine Bacteria 3+ Blood Type Blood Type Confirm Antibody Screen Crossmatch ([facility]) Preliminary micro results at discharge 04/08/19 12:34 Blood Culture - Preliminary Blood NO GROWTH AFTER 48 HOURS 04/08/19 12:34 Blood Culture - Preliminary Blood NO GROWTH AFTER 48 HOURS DS: Diagnosis - Discharge Diagnosis (1) History of CVA with residual deficit Status: Chronic (2) Hemiplegic cerebral palsy Status: Chronic (3) Seizure disorder Status: Chronic (4) Change in mental status Status: Acute (5) Pneumonia, aspiration Status: Acute (6) Hypoxia Status: Acute (7) Chronic anemia Status: Acute (8) Chronic renal disease, stage 3, moderately decreased glomerular filtration rate (GFR) between 30-59 mL/min/1.73 square meter Status: Acute (9) CHF (congestive heart failure) Status: Acute Discharge Plan - Patient Discharge Instructions ACTIVITY: Continue current activity DIET: continue same diet Patient Instructions: Aspiration Pneumonia, DI for Heart Failure, DI for Aspiration Pneumonia - Follow up Plan Disposition: [facility] Home Medications: Home Medications Medication Instructions Recorded Confirmed Type Albuterol Sulfate [Albuterol 0.63 mg IH TID 12/12/17 04/08/19 History Sulfate 0.63mg/3ml Neb] Apixaban [Eliquis 2.5mg tab] 2.5 mg PO BID 12/12/17 04/08/19 History Benzonatate [Tessalon Perle 100mg 200 mg PO TID 12/12/17 04/08/19 History Cap] Buspirone HCl [Buspar 10mg tablet] 10 mg PO BID 12/12/17 04/08/19 History Dicyclomine HCl [Bentyl] 20 mg PO TID 12/12/17 04/08/19 History Fluticasone Propionate [Flonase 1 spray NS DAILY 12/12/17 04/08/19 History Allergy Relief NS] Furosemide [Furosemide 40MG tAB] 20 mg PO DAILY 12/12/17 04/08/19 History Gabapentin [Gabapentin 100mg Cap] 100 mg PO TID 12/12/17 04/08/19 History Loratadine [Claritin 10mg Tablet] 10 mg PO DAILY 12/12/17 04/08/19 History Mag Hydrox/Aluminum Hyd/Simeth 30 ml PO BID 12/12/17 04/08/19 History [Maalox 30ml UDC] Oxybutynin Chloride [Ditropan Xl] 5 mg PO DAILY 12/12/17 04/08/19 History PHENobarbital [PHENobarbital 32.4 mg PO 1200,2000 12/12/17 04/09/19 History 32.4mg Tablet] Pantoprazole Sodium [Protonix 40mg 40 mg PO DAILY 12/12/17 04/08/19 History (granule) packet] Polyethylene Glycol 3350 [Miralax 17 gm PO DAILY 12/12/17 04/08/19 History 17gm Packet] Pravastatin Sodium [Pravachol 20mg 20 mg PO HS 12/12/17 04/08/19 History Tablet] Sucralfate [Carafate 1gm Tab] 1 gm PO ACHS 12/12/17 04/08/19 History carBAMazepine [Tegretol] 200 mg PO BID 12/12/17 04/08/19 History levETIRAcetam [Keppra 500mg tablet] 500 mg PO BID 12/12/17 04/09/19 History Acetaminophen [Acetaminophen Extra 500 mg PO BID 04/08/19 04/08/19 History Strength] PHENobarbital [PHENobarbital 64.8 mg PO DAILY 04/08/19 04/08/19 History 32.4mg Tablet] Tizanidine HCl [Zanaflex 4mg 4 mg PO 1200 04/09/19 04/09/19 History tablet] Ertapenem Sodium [Invanz 1gm Vial] 1 gm IV Q24H 10 Days #10 vial 04/11/19 Rx Prescriptions/Medication Reconciliation: New Ertapenem Sodium [Invanz 1gm Vial] 1 gm IV Q24H 10 Days #10 vial Continued Fluticasone Propionate [Flonase Allergy Relief NS] 1 spray NS DAILY Polyethylene Glycol 3350 [Miralax 17gm Packet] 17 gm PO DAILY Loratadine [Claritin 10mg Tablet] 10 mg PO DAILY Oxybutynin Chloride [Ditropan Xl] 5 mg PO DAILY Furosemide [Furosemide 40MG tAB] 20 mg PO DAILY carBAMazepine [Tegretol] 200 mg PO BID Dicyclomine HCl [Bentyl] 20 mg PO TID Benzonatate [Tessalon Perle 100mg Cap] 200 mg PO TID Gabapentin [Gabapentin 100mg Cap] 100 mg PO TID Sucralfate [Carafate 1gm Tab] 1 gm PO ACHS Pravastatin Sodium [Pravachol 20mg Tablet] 20 mg PO HS Acetaminophen [Acetaminophen Extra Strength] 500 mg PO BID Tizanidine HCl [Zanaflex 4mg tablet] 4 mg PO 1200 levETIRAcetam [Keppra 500mg tablet] 500 mg PO BID Pantoprazole Sodium [Protonix 40mg (granule) packet] 40 mg PO DAILY PHENobarbital [PHENobarbital 32.4mg Tablet] 32.4 mg PO 1200,2000 Mag Hydrox/Aluminum Hyd/Simeth [Maalox 30ml UDC] 30 ml PO BID Buspirone HCl [Buspar 10mg tablet] 10 mg PO BID Apixaban [Eliquis 2.5mg tab] 2.5 mg PO BID Albuterol Sulfate [Albuterol Sulfate 0.63mg/3ml Neb] 0.63 mg IH TID PHENobarbital [PHENobarbital 32.4mg Tablet] 64.8 mg PO DAILY
== END 2019-04-11 11:59 | DRG 178 ==
LOC: ER 11:35 → 2ND 11:35 → OBSVTOIN 18:05 → 2ND 18:06
PROVIDERS: ADMIT Internal Medicine Adolescent Medicine; ATTEND Internal Medicine Adolescent Medicine
CPT/HCPCS: 36415; 70371; 70450; 71010; 71045; 74176; 80048; 80053; 80156; 80177; 80184; 81001; 83605; 83690; 83880; 84484; 85014; 85018; 85025; 86850; 87040; 87070; 87086; 87088; 87186; 87205; 92611; 93005; 93306; 94640; 94761; 96374; 99284; J1956; J2543; P9016; S0077

== ENCOUNTER → 2019-04-15 13:29 | Outpatient (CLI) | payer MEDICARE, MEDICAID, SELFPAY ==
[2019-04-15 14:30] VITALS: BMI 26.6
--- NOTE | 2019-04-15 14:31 | XR_ITS ---
XR chest portable HISTORY: ITS.REASON: s/p picc line placement ORDERING PHYSICIAN: Oracio Zapata MD PATIENT AGE: 84 years COMPARISON: None FINDINGS: Left upper extremity PICC line has been inserted. The tip is in region of the right atrium and can be withdrawn approximately 5 cm. There is mild cardiomegaly without failure. Patient's chin overlies upper chest. Atelectatic changes are present in the right lung base. IMPRESSION: Left upper extremity PICC line tip is in the region of the right atrium and could be withdrawn approximately 5 cm Significant findings called to [facility] on 04/15/2019 2:51 PM.
--- NOTE | 2019-04-15 15:08 | PC.NURSE ---
received call from radiologist r/t pt picc line, per Dr Carmona, picc line needs to be pulled back 5cm. Picc repositioned by Maryam Viera RN.
== END ==
PROVIDERS: PCP Internal Medicine Adolescent Medicine; Visit Provider Internal Medicine Adolescent Medicine
DX: N39.0 Urinary tract infection, site not specified (principal); Z16.12 Extended spectrum beta lactamase (ESBL) resistance; B96.20 Unspecified Escherichia coli [E. coli] as the cause of diseases classified elsewhere
CPT/HCPCS: 36569; 71045; C1751

== ENCOUNTER → 2019-04-22 15:30 | Outpatient (CLI) | payer MEDICARE, MEDICAID, SELFPAY ==
[2019-04-22 15:36] LABS: Adenovirus F 40/41, stool Not Detected (NotDetected); Astrovirus Not Detected (NotDetected); Campylobacter Not Detected (NotDetected); Clostridium Difficile A/B, PCR Not Detected (NotDetected); Cryptosporidium Not Detected (NotDetected); Cyclospora Cayetanesis Not Detected (NotDetected); Entamoeba histolytica Not Detected (NotDetected); Enteroaggregative E coli Not Detected (NotDetected); Enteropathogenic E coli Not Detected (NotDetected); Enterotoxigenic E coli Not Detected (NotDetected); Giardia lamblia Not Detected (NotDetected); Norovirus Not Detected (NotDetected); Plesimonas Shigalloides, PCR Not Detected (NotDetected); Rotavirus A Not Detected (NotDetected); Salmonella, PCR Not Detected (NotDetected); Sapovirus Not Detected (NotDetected); Shiga-like toxin E coli Not Detected (NotDetected); Shigella Enterovasive E coli Not Detected (NotDetected); Vibrio Cholerae Not Detected (NotDetected); Vibrio, PCR Not Detected (NotDetected); Yersinia Entercolitica, PCR Not Detected (NotDetected)
== END ==
PROVIDERS: Visit Provider Internal Medicine Adolescent Medicine
DX: R19.5 Other fecal abnormalities (principal)
CPT/HCPCS: 87045; 87506

== ENCOUNTER 2019-06-22 09:29 | Inpatient (IN) ==
--- NOTE | 2019-06-22 09:38 | Emergency Department Note ---
ED Disposition Clinical Impression: Right hemiparesis, History of CVA (cerebrovascular accident), Seizure disorder, Neurofibromatosis, Anemia, UTI (urinary tract infection), Acute renal disease, Hypernatremia, Dehydration, DNR (do not resuscitate) Disposition: Still a Patient Condition on Discharge: Fair Referrals: Oracio Zapata MD [Primary Care Provider] - - Critical Care Critical Care Time: No Attestation: On , the high probability of a clinically significant, sudden or life threatening deterioration of the following system(s) required my full and direct attention, intervention and personal management. The time I documented below is in addition to time spent performing reported procedures but includes the following listed in this critical care notation. Medical Decision Making - Alex Inquiry Pt receiving controlled substance: No Alex was queried for this patient: No Vital Signs: 06/22/19 09:19 Temperature 98.9 F Temperature Source Oral Respiratory Rate 18 02 Sat by Pulse Oximetry 96 Oxygen Delivery Method Room Air - Lab Data Lab Results 06/22/19 09:29: Specimen Source Right brachial, O2 % 21, ABG pH 7.42, ABG pCO2 46.1 H, ABG pO2 79.3 L, ABG HCO3 29.4 H, ABG Total CO2 30.8 H, ABG O2 Saturation 95, ABG Base Excess 4.9 H, Serafin Test Acceptable 06/22/19 09:55: Urine Color Yellow, Urine Appearance Sl cloudy, Urine pH 6.0, Ur Specific [place] 1.020, Urine Protein Trace, Urine Glucose (UA) Negative, Urine Ketones Negative, Urine Blood Negative, Urine Nitrate Positive, Urine Bilirubin Negative, Urine Urobilinogen 0.2, Ur Leukocyte Esterase 1+ A, Urine WBC 20-50, Ur Squamous Epith Cells Occasional, Urine Bacteria 4+ 06/22/19 09:55: WBC 6.0, RBC 3.71 L, Hgb 10.2 L, Hct 33.8 L, MCV 91.3, MCH 27.4, MCHC 30.1 L, RDW 17.1, Plt Count 316, MPV 7.4, Neut % (Auto) 66.8, Lymph % (Auto) 25.5, [place] % (Auto) 5.3, Eos % (Auto) 2.2, Baso % (Auto) 0.3, Neut # (Auto) 4.0, Lymph # (Auto) 1.5, [place] # (Auto) 0.3, Eos # (Auto) 0.1, Baso # (Auto) 0.0 06/22/19 09:55: Sodium 153 H*, Potassium 4.3, Chloride 110 H, Carbon Dioxide 33 H, Anion Gap 14.3, BUN 51 H, Creatinine 2.38 H, Estimated Creat Clear 28, Estimated GFR 19 L*, Est GFR ( Amer) 24 L, Glucose 92, Calcium 10.0, Total Bilirubin 0.2, AST 22, ALT 26, Alkaline Phosphatase 101, Troponin I < 0.02, Total Protein 7.9, Albumin 3.5, Globulin 4.4 H, Albumin/Globulin Ratio 0.8 L, Salicylates 1.5 L, Acetaminophen 0 L 06/22/19 09:55: Lactate 1.2 06/22/19 09:55: Urine Opiates Screen Negative, Urine Methadone Screen Negative, Ur Barbituates Screen Positive H, Ur Phencyclidine Scrn Negative, Ur Amphetamines Screen Negative, U Benzodiazepines Scrn Negative, Urine Cocaine Screen Negative, U Marijuana (THC) Screen Negative 06/22/19 09:55: Magnesium 2.5 H Result diagrams: 06/22/19 09:55 06/22/19 09:55 Orders (Tests/Meds): ED MEDICATIONS Generic Name Dose Route Start Last Admin Trade Name Freq PRN Reason Stop Dose Admin Sodium Chloride 3 ml 06/22/19 09:29 Sodium Chloride 3% 15ml Neb IH 07/22/19 09:28 ONCE PRN INDUCE SPUTUM COLLECTION ORDERS Category Date Time Status CT head/brain wo con Stat Cat Scan 06/22/19 09:24 Taken XR chest portable Stat Exams 06/22/19 09:24 Taken Acetaminophen Stat Lab 06/22/19 09:55 Results Carbamazepine (Tegretol) Stat Lab 06/22/19 09:55 Results Comprehensive Metabolic Panel Stat Lab 06/22/19 09:55 Results Levetiracetam (Keppra) Stat Lab 06/22/19 09:55 Received Salicylate Stat Lab 06/22/19 09:55 Results Troponin I Stat Lab 06/22/19 09:55 Results Blood Culture Stat Micro 06/22/19 09:55 Received Sputum Culture & Gram Stain Stat Micro 06/22/19 09:49 Ordered Urine Culture Stat Micro 06/22/19 09:55 Received - Radiology Data #1 Image(s): Chest Image Reviewed: Yes I reviewed the patient's radiology image Preliminary Findings: Normal/NAD - CT Data CT Scan: Head Time Received: 10:[address] Reviewed: Yes: I discussed the CT results w/the radiologist Preliminary Findings: Abnormal Findings Narrative: Chronic atrophic changes no acute. - ECG Data Tracing #1 Sinus bradycardia 55/min, baseline artifact, low voltage, no acute ST segment or T wave changes. ECG initial impression date: 06/22/19 ECG initial impression time: 09:30 Medical Decision Narrative: Patient remained hemodynamically neurologically stable. Her sister arrived and discussed her medical condition. Her labs were positive for dehydration and hyponatremia. I spoke with Dr. Pedroza who agreed to admit the patient for D5 half-normal saline 100 and hour with repeated labs. The family was agreeable for admission. Altered Mental Status HPI - General Chief Complaint: Weakness Stated Complaint: failure to thrive Time Seen by Provider: 06/22/19 09:30 Mode of Arrival: EMS Source of Information: EMS, Medical Record Limitations: Altered Mental Status Description of Symptoms (Recalled from ER Triage Doc. by RN): pt has had failure to thrive for approx a month per mi report; states she has steadily declined, not eating, not doing adls despite constant encouragement from therapies; sent to er for eval this date; history of dementia - History of Present Illness HPI narrative: 84 years old white female retirement resident with past medical history of cerebral palsy, learning disability, cerebrovascular accident 7 years ago with residual of right hemiparesis on Eliquis for anticoagulation and seizure disorder or multiple antiseizure medications includes Keppra, phenobarbital, and Tegretol. Today she was sent by the retirement staff due to gradual decline for the past 4 weeks. I spoke with the retirement staff, who confirmed that there is no acute event, patient had gradual decline over the last 4 weeks, he underwent labs on June 13 with reputed Keppra and phenobarbital levels, she had no tonic-clonic activity, is scheduled to see her neurologist on July 09, 2019. Today she was on able to be arousable for feeding and medication intake so the retirement staff contacted her primary care physician who sent her to the ED for evaluation. In the ED she is alert with a reasonable response to discussion and stimuli, she has the appearance of neurofibromatosis and chronic illness. He had cont ractures of the right upper and right lower extremity. Chest congestion with upper respiratory noise. Onset (ago): week(s) Timing confirmed by: caregiver Severity: moderate Consistency of symptoms: getting worse Context: other (She has a stigmata of chronic illnesses.) - Related Data Home Medications Medication Instructions Recorded Confirmed Albuterol Sulfate [Albuterol 0.63 mg IH TID 12/12/17 04/08/19 Sulfate 0.63mg/3ml Neb] Apixaban [Eliquis 2.5mg tab] 2.5 mg PO BID 12/12/17 04/08/19 Benzonatate [Tessalon Perle 100mg 200 mg PO TID 12/12/17 04/08/19 Cap] Buspirone HCl [Buspar 10mg 10 mg PO BID 12/12/17 04/08/19 tablet] Dicyclomine HCl [Bentyl] 20 mg PO TID 12/12/17 04/08/19 Fluticasone Propionate [Flonase 1 spray NS DAILY 12/12/17 04/08/19 Allergy Relief NS] Furosemide [Furosemide 40MG tAB] 20 mg PO DAILY 12/12/17 04/08/19 Gabapentin [Gabapentin 100mg Cap] 100 mg PO TID 12/12/17 04/08/19 Loratadine [Claritin 10mg Tablet] 10 mg PO DAILY 12/12/17 04/08/19 Mag Hydrox/Aluminum Hyd/Simeth 30 ml PO BID 12/12/17 04/08/19 [Maalox 30ml UDC] Oxybutynin Chloride [Ditropan Xl] 5 mg PO DAILY 12/12/17 04/08/19 PHENobarbital [PHENobarbital 32.4 mg PO 1200,199912/12/17 04/09/19 32.4mg Tablet] Pantoprazole Sodium [Protonix 40mg 40 mg PO DAILY 12/12/17 04/08/19 (granule) packet] Polyethylene Glycol 3350 [Miralax 17 gm PO DAILY 12/12/17 04/08/19 17gm Packet] Pravastatin Sodium [Pravachol 20mg 20 mg PO HS 12/12/17 04/08/19 Tablet] Sucralfate [Carafate 1gm Tab] 1 gm PO ACHS 12/12/17 04/08/19 carBAMazepine [Tegretol] 200 mg PO BID 12/12/17 04/08/19 levETIRAcetam [Keppra 500mg tablet] 500 mg PO BID 12/12/17 04/09/19 Acetaminophen [Acetaminophen Extra 500 mg PO BID 04/08/19 04/08/19 Strength] PHENobarbital [PHENobarbital 64.8 mg PO DAILY 04/08/19 04/08/19 32.4mg Tablet] Tizanidine HCl [Zanaflex 4mg 4 mg PO 1200 04/09/19 04/09/19 tablet] Allergies Allergy/AdvReac Type Severity Reaction Status Date / Time No Known Allergies Allergy Unverified 04/08/19 13:42 [facility] History - Hepatitis A Screen Drug use history?: No High risk sexual behaviors?: No History of sexually transmitted infection?: No Currently employed?: No Childcare worker?: No Do you have indoor plumbing?: Yes Do you have electricity?: Yes Attestation statement:: This patient has been screened for Hepatitis A risk factors. I have reviewed the patient's past medical history: Yes Medical History: Reports:: Congestive Heart Failure, Cerebrovascular Accident (with residual R hemiparesis), Gastroesophageal Reflux Disease(GERD), Seizures Denies:: Cancer, Diabetes Mellitus Type 1, Diabetes Mellitus Type 2, Internal Pacemaker, MRSA Other Medical History: Reports: Other (cerebral palsy, MR) Other Surgeries: No: Pacemaker Amputation: No Fractures: No - Social History Smoking Status: Never smoker Alcohol Intake: never Occupational Status: disabled Housing: retirement Household Members: other Family Hx:: Heart Attack, Hypertension, Stroke ROS Obtained: Yes All systems reviewed & no additional complaints Physical Exam - General General appearance: alert, in no apparent distress, obese, other (Chronic illness, right side contractures, and thick lower lip.) - Head Head exam: atraumatic, normocephalic, normal inspection - Eye Eye exam: Present: normal appearance, PERRL, EOMI. Absent: scleral icterus, nystagmus - ENT ENT exam: Present: mucous membranes moist, TM's normal bilaterally, normal external ear exam, other (Macroglossia and thick lower lip.) - Neck Neck exam: Present: normal inspection, full ROM, trachea midline. Absent: meningismus, lymphadenopathy - Chest Chest inspection: Present: normal inspection, symmetric chest wall rise, other (Neurofibromatosis of the chest, well-healed scar of prior surgery on the upper dorsal thoracic spine. ). Absent: tenderness - Respiratory Respiratory exam: Present: normal lung sounds bilaterally. Absent: respiratory distress - Cardiovascular Cardiovascular exam: Present: regular rate, normal rhythm, normal heart sounds. Absent: JVD - Abdominal Exam Abdominal exam: Present: soft, normal bowel sounds. Absent: distention, tenderness, guarding, rebound, rigidity - External exam: Present: normal external exam - Extremities Exam Extremities exam: Present: normal capillary refill, pedal edema, other (Right hemiparesis with contractures, splint on right wrist. ). Absent: full ROM, tenderness, calf tenderness - Back Exam Back exam: Present: normal inspection. Absent: tenderness, CVA tenderness (R), CVA tenderness (L) - Neurological Exam Neurological exam: Present: alert, CN II-XII intact, other (Right hemiparesis from prior stroke.). Absent: normal gait, motor sensory deficit - Psychiatric Psychiatric exam: Present: normal affect, normal mood - Skin Skin exam: Present: warm, dry, intact, normal color - Lymphatic Lymphatic Findings: no adenopathy
[2019-06-22 10:05] LABS: Microscopic, Urine URINE MICROSCOPIC (MICROSCOPIC)
[2019-06-22 10:06] LABS: Basophils % 0.3 % (0.1-2.0); Eosinophils # 0.1 K/mm3 (0.0-0.4); Eosinophils % 2.2 % (0.1-12.0); Hematocrit 33.8 % (37.0-47.0); Hemoglobin 10.2 g/dL (12.2-16.2); Lymphocytes # 1.5 K/mm3 (0.7-4.5); Lymphocytes % 25.5 % (10-50); Mean Corpuscular HGB Conc 30.1 g/dL (31.8-35.4); Mean Corpuscular Volume 91.3 fl (81-99); Mean Platelet Volume 7.4 fl (7.4-10.4); Monocytes # 0.3 K/mm3 (0.1-1.0); Monocytes % 5.3 % (1.7-9.3); Neutrophils % 66.8 % (37.0-80.0); Platelet Count 316 K/mm3 (142-424); Red Blood Count 3.71 M/mm3 (4.20-5.40); Red Cell Distribution Width 17.1 % (11.5-17.5)
[2019-06-22 10:07] LABS: ABG Base Excess 4.9 mmol/L (-2.4-2.3); ABG HCO3 29.4 mmhg (22.0-26.0); ABG Oxygen Saturation 95 % (90-100); ABG PCO2 46.1 mmhg (35.0-45.0); ABG PH 7.42 mmol/L (7.35-7.45); ABG PO2 79.3 mmhg (80-100); ABG TCO2 30.8 mmhg (23-27)
[2019-06-22 10:08] LABS: Appearance,Urine SL CLOUDY (Clear); Bilirubin,Urine Negative (Negative); Blood, Urine Negative (Negative); Color,Urine YELLOW (Yellow); Glucose,Urine (UA) Negative (Negative); Ketones,Urine Negative (Negative); Leukocyte Esterase,Urine 1+ (Negative); Protein,Urine TRACE (Negative); Urobilinogen,Urine 0.2 EU/dl (0.2)
[2019-06-22 10:09] LABS: Allen's Test Acceptable; Oxygen 21 %
[2019-06-22 10:15] LABS: Amphetamine/Metha Screen,Urine Negative ng/mL (<1000); Barbiturates Screen,Urine Positive ng/mL (<200); Benzodiazepines Screen,Urine Negative ng/mL (<200); Cannabinoid Screen,Urine Negative ng/mL (<50); Cocaine Screen,Urine Negative ng/mL (<300); Methadone Screen,Urine Negative ng/mL (<300); Opiate Screen,Urine Negative ng/mL (<300); Phencyclidine Screen,Urine Negative ng/mL (<25)
[2019-06-22 10:20] LABS: Bacteria,Urine 4+ /lpf; Squamous Epithelial Cell,Urine Occasional #/hpf (0-5); WBC,Urine 20-50 #/hpf (0-3)
[2019-06-22 10:26] LABS: Acetaminophen 0 ug/mL (10-30); Alanine Aminotransferase 26 U/L (12-78); Albumin Level 3.5 gm/dL (3.4-5.0); Albumin/Globulin Ratio 0.8 (1.1-1.8); Alkaline Phosphatase 101 U/L (46-116); Anion Gap 14.3 mEq/L (5-15); Aspartate Amino Transferase 22 U/L (15-37); Bilirubin,Total 0.2 mg/dL (0.2-1.0); Blood Urea Nitrogen 51 mg/dL (7-18); Carbon Dioxide 33 mmol/L (21.0-32.0); Chloride 110 mmol/L (98-107); Globulin 4.4 gm/dl (1.3-3.2); Glucose 92 mg/dL (74-106); Salicylate 1.5 mg/dL (2.8-20.0); Total Protein,Serum 7.9 gm/dL (6.4-8.2)
[2019-06-22 10:27] LABS: Sodium 153 mmol/L (136-145)
--- NOTE | 2019-06-22 11:52 | Pharmacy Consult Notes ---
[facility] Pharmacy VTE Monitoring - Patient Demographics Admission date: 06/22/19 Report Date: 06/22/19 Time: 11:51 Allergies/Adverse Reactions: Patient Allergies No Known Allergies Allergy (Unverified 04/08/19 13:42) Height: 1.7 m Weight: 99.337 kg Patient Problems: Current Active Problems (Updated 06/22/19 @ 10:47 by Antony Bonds MD) Seizure disorder (Chronic) Right hemiparesis (Acute) History of CVA (cerebrovascular accident) (Acute) Neurofibromatosis (Acute) Anemia (Acute) UTI (urinary tract infection) (Acute) Acute renal disease (Acute) Hypernatremia (Acute) Dehydration (Acute) DNR (do not resuscitate) (Acute) - VTE Risk Labs: VTE Related Lab Results Hgb 10.2 g/dL (12.2-16.2) L 06/22/19 09:55 Hct 33.8 % (37.0-47.0) L 06/22/19 09:55 Plt Count 316 K/mm3 (142-424) 06/22/19 09:55 BUN 51 mg/dL (7-18) H 06/22/19 09:55 Creatinine 2.38 mg/dL (0.55-1.02) H 06/22/19 09:55 Estimated Creat Clear 28 mL/min (50-200) 06/22/19 09:55 - Prophylaxis VTE Prophylaxis Ordered?: Yes Types of VTE Prophylaxis: TEDS Knee High Location of Applied Device: Bilateral Lower Extremeties - VTE Diagnosis Confirmed Treatment or plan recommended: Continue Current Treatment
--- NOTE | 2019-06-22 16:53 | History & Physical Report ---
*Admission Date: 06/22/19 *Chief complaint: Fatigue and somnolence *History of present illness: Ms. Cabrera is a 84 year old female with a h/o hemiplegic cerebral palsy with associated MR, seizure disorder, CVA, HTN and recurrent UTI who presented to the ER from her snf due to concern by family for worsening mental status, decline in cognitive function, poor p.o. intake over the past month. Her sister who is at bedside states that she has just not been herself for the past month. Patient has been disinterested in eating. Letting food and liquids just roll out of her mouth. Taking it extremely long time to swallow. They state she is been more fatigued in the afternoons wanting to just stay in her room and rest. This is unlike her, giving them concern for progressive seizure disorder, or TIAs/CVAs. On presentation to the ER patient was found to have a stable CT scan with no acute pathology. Her labs were significant for hypernatremia, worsening acute kidney injury on chronic kidney disease. Chest x-ray negative for pneumonia. Urine concerning for UTI with positive white blood cells, leuk esterase, positive nitrate. Patient was admitted for IV antibiotics, IV fluids, further evaluation. Unable to obtain review of systems due to somnolence. Family at bedside denies that patient has had any complaints as of late other than worsening confusion and fatigue/somnolence. Does not appear to be short of breath or in pain. [facility] History I have reviewed the patient's past medical history: Yes Medical History: Reports:: Congestive Heart Failure, Cerebrovascular Accident (with residual R hemiparesis), Gastroesophageal Reflux Disease(GERD), Seizures Denies:: Cancer, Diabetes Mellitus Type 1, Diabetes Mellitus Type 2, Internal Pacemaker, MRSA *Have you ever received a pneumonia vaccine?: Yes *Have you received a flu vaccine this season?: Yes Other Medical History: Reports: Other (cerebral palsy, MR) Other Surgeries: No: Pacemaker Amputation: No Fractures: No - *Social History Smoking Status: Never smoker Alcohol Intake: never *Occupational Status:: disabled Housing: snf Household Members: other *Travel in the last 8 weeks: None - Psychiatric History Expresses thoughts of harming self/others: None Suicide Plan Description: No Plan Family Hx:: Heart Attack, Hypertension, Stroke Review of Systems - Review of Systems Review of systems:: unable to obtain Meds Home Medications Medication Instructions Recorded Confirmed Type Albuterol Sulfate [Albuterol 0.63 mg IH TID 12/12/17 06/22/19 History Sulfate 0.63mg/3ml Neb] Apixaban [Eliquis 2.5mg tab] 2.5 mg PO BID 12/12/17 06/22/19 History Benzonatate [Tessalon Perle 100mg 200 mg PO TID 12/12/17 06/22/19 History Cap] Buspirone HCl [Buspar 10mg 10 mg PO HS 12/12/17 06/22/19 History tablet] Fluticasone Propionate [Flonase 1 spray NS DAILY 12/12/17 06/22/19 History Allergy Relief NS] Furosemide [Furosemide 40MG tAB] 20 mg PO DAILY 12/12/17 06/22/19 History Gabapentin [Gabapentin 100mg Cap] 100 mg PO TID 12/12/17 06/22/19 History Loratadine [Claritin 10mg Tablet] 10 mg PO DAILY 12/12/17 06/22/19 History Mag Hydrox/Aluminum Hyd/Simeth 30 ml PO DAILYP PRN 12/12/17 06/22/19 History [Maalox 30ml UDC] Oxybutynin Chloride [Ditropan Xl] 5 mg PO DAILY 12/12/17 06/22/19 History PHENobarbital [PHENobarbital 32.4 mg PO 1200,199912/12/17 06/22/19 History 32.4mg Tablet] Pantoprazole Sodium [Protonix 40mg 40 mg PO DAILY 12/12/17 06/22/19 History (granule) packet] Polyethylene Glycol 3350 [Miralax 17 gm PO DAILYP PRN 12/12/17 06/22/19 History 17gm Packet] Pravastatin Sodium [Pravachol 20mg 20 mg PO HS 12/12/17 06/22/19 History Tablet] carBAMazepine [Tegretol] 200 mg PO BID 12/12/17 06/22/19 History levETIRAcetam [Keppra 500mg tablet] 500 mg PO BID 12/12/17 06/22/19 History Acetaminophen [Acetaminophen Extra 500 mg PO BID 04/08/19 06/22/19 History Strength] PHENobarbital [PHENobarbital 64.8 mg PO DAILY 04/08/19 06/22/19 History 32.4mg Tablet] Tizanidine HCl [Zanaflex 4mg 4 mg PO 1200 04/09/19 06/22/19 History tablet] Buspirone HCl [Buspar 5mg tablet] 5 mg PO DAILY 06/22/19 06/22/19 History Dicyclomine HCl 20 mg PO TID 06/22/19 06/22/19 History Allergies Allergy/AdvReac Type Severity Reaction Status Date / Time No Known Allergies Allergy Unverified 04/08/19 13:42 Exam Vital signs and Labs for Last 24 Hours: Temp Pulse Resp BP Pulse Ox 97.5 F L 54 L 19 150/52 H 96 06/22/19 15:31 06/22/19 15:31 06/22/19 15:31 06/22/19 15:31 06/22/19 15:31 Laboratory Results - last 24 hr 06/22/19 09:29: Specimen Source Right brachial, O2 % 21, ABG pH 7.42, ABG pCO2 46.1 H, ABG pO2 79.3 L, ABG HCO3 29.4 H, ABG Total CO2 30.8 H, ABG O2 Saturation 95, ABG Base Excess 4.9 H, Serafin Test Acceptable 06/22/19 09:55: Urine Color Yellow, Urine Appearance Sl cloudy, Urine pH 6.0, Ur Specific [place] 1.020, Urine Protein Trace, Urine Glucose (UA) Negative, Urine Ketones Negative, Urine Blood Negative, Urine Nitrate Positive, Urine Bilirubin Negative, Urine Urobilinogen 0.2, Ur Leukocyte Esterase 1+ A, Urine WBC 20-50, Ur Squamous Epith Cells Occasional, Urine Bacteria 4+ 06/22/19 09:55: WBC 6.0, RBC 3.71 L, Hgb 10.2 L, Hct 33.8 L, MCV 91.3, MCH 27.4, MCHC 30.1 L, RDW 17.1, Plt Count 316, MPV 7.4, Neut % (Auto) 66.8, Lymph % (Auto) 25.5, [place] % (Auto) 5.3, Eos % (Auto) 2.2, Baso % (Auto) 0.3, Neut # (Auto) 4.0, Lymph # (Auto) 1.5, [place] # (Auto) 0.3, Eos # (Auto) 0.1, Baso # (Auto) 0.0 06/22/19 09:55: Sodium 153 H*, Potassium 4.3, Chloride 110 H, Carbon Dioxide 33 H, Anion Gap 14.3, BUN 51 H, Creatinine 2.38 H, Estimated Creat Clear 28, Estimated GFR 19 L*, Est GFR ( Amer) 24 L, Glucose 92, Calcium 10.0, Total Bilirubin 0.2, AST 22, ALT 26, Alkaline Phosphatase 101, Troponin I < 0.02, Total Protein 7.9, Albumin 3.5, Globulin 4.4 H, Albumin/Globulin Ratio 0.8 L, Salicylates 1.5 L, Acetaminophen 0 L, Carbamazepine 8.0 06/22/19 09:55: Lactate 1.2 06/22/19 09:55: Urine Opiates Screen Negative, Urine Methadone Screen Negative, Ur Barbituates Screen Positive H, Ur Phencyclidine Scrn Negative, Ur Amphetamines Screen Negative, U Benzodiazepines Scrn Negative, Urine Cocaine Screen Negative, U Marijuana (THC) Screen Negative 06/22/19 09:55: Magnesium 2.5 H I & O for Last 24 hours: Intake & Output 06/19/19 06/20/19 06/21/19 06/22/19 23:59 23:59 23:59 23:59 Intake Total 500 / 500 Balance 500 / 500 Weight 69.485 kg Microbiology Reports for the Last 24 Hours: Microbiology 06/22/19 10:55 Sputum - Expectorated Sputum Gram Stain - Final Narrative: Lethargic, somnolent, minimal movement to physical stimuli. facial droop at baseline, macroglossia. RUE flaccid at baseline, no clonus bilaterally in lower extremities. Rate and rhythm regular. Lungs clear to auscultation bilaterally, heart rate regular but distant due to body habitus. Abdomen soft, nontender, normoactive bowel sounds. Assessment and Plan (1) Acute kidney injury superimposed on CKD Current visit: Yes Status: Acute Category: Medical Code(s): N17.9 - Acute kidney failure, unspecified; N18.9 - Chronic kidney disease, unspecified (2) Dehydration Current visit: Yes Status: Acute Category: Medical Code(s): E86.0 - Dehydration (3) History of CVA (cerebrovascular accident) Current visit: Yes Status: Acute Category: Medical Code(s): Z86.73 - Personal history of transient ischemic attack (TIA), and cerebral infarction without residual deficits (4) Hypernatremia Current visit: Yes Status: Acute Category: Medical Code(s): E87.0 - Hyperosmolality and hypernatremia (5) Right hemiparesis Current visit: Yes Status: Acute Category: Medical Code(s): G81.91 - Hemiplegia, unspecified affecting right dominant side (6) Seizure disorder Current visit: Yes Status: Chronic Category: Medical Code(s): G40.909 - Epilepsy, unspecified, not intractable, without status epilepticus (7) CHF (congestive heart failure) Current visit: No Status: Acute Category: Medical Code(s): I50.9 - Heart failure, unspecified (8) Hemiplegic cerebral palsy Current visit: No Status: Chronic Category: Medical Code(s): G80.8 - Other cerebral palsy (9) UTI (urinary tract infection) Current visit: Yes Status: Acute Category: Medical Code(s): N39.0 - Urinary tract infection, site not specified - Assessment and plan all Dx Assessment and Plan for all problems:: Ms. Cabrera is an 84-year-old female with complex medical history who resides in a snf. Presents due to worsening mental status. Found to have electrolyte abnormalities and kidney dysfunction, in the setting of what appears to be a UTI. Currently remains afebrile with no elevation in white count. No criteria for sepsis met. Will pursue fluid resuscitation, status post 500 cc of LR. Continue D5 half-normal saline at 100 and hour to address free water deficit. Will monitor for improvement with labs this evening and repeat labs in the morning. Considering patient's previous urine culture showing significant resistance and 2 strains of E. coli, will initiate Invanz pending culture results for more specificity and de-escalation of antibiotics. Extensive discussion about goals of care with family at bedside today. Pending patient's improvement to clinical management, will discuss further outpatient management to address her poor p.o. intake and seizure disorder. Have strong concern for patient's ability to have meaningful recovery. Condition is guarded prognosis is poor. Continues to require inpatient management
[2019-06-23 06:37] LABS: Anion Gap 10.9 mEq/L (5-15)
[2019-06-23 06:44] LABS: Basophils % 0.3 % (0.1-2.0); Eosinophils # 0.1 K/mm3 (0.0-0.4); Eosinophils % 2.5 % (0.1-12.0); Hematocrit 29.3 % (37.0-47.0); Lymphocytes # 1.6 K/mm3 (0.7-4.5); Lymphocytes % 29.3 % (10-50); Mean Corpuscular Volume 89.9 fl (81-99); Mean Platelet Volume 7.5 fl (7.4-10.4); Monocytes # 0.4 K/mm3 (0.1-1.0); Neutrophils # 3.4 K/mm3 (1.8-7.8); Neutrophils % 60.9 % (37.0-80.0); Platelet Count 264 K/mm3 (142-424); Red Blood Count 3.26 M/mm3 (4.20-5.40); White Blood Count 5.6 K/mm3 (4.8-10.8)
[2019-06-23 06:51] LABS: Calcium 8.8 mg/dL (8.5-10.1)
[2019-06-23 06:53] LABS: Hemoglobin 9.1 g/dL (12.2-16.2)
--- NOTE | 2019-06-23 08:31 | Progress Note ---
Internal Medicine - PN: Subj *Date: 06/23/19 *Time: 08:29 Interval history: Overnight patient is a little bit more alert. IV fluids have been infusing. Creatinine is improving. Exam Vital signs and Labs for Last 24 Hours: Temp Pulse Resp BP Pulse Ox 98.4 F 53 L 20 134/60 96 06/23/19 07:54 06/23/19 07:54 06/23/19 07:54 06/23/19 07:54 06/23/19 07:54 Laboratory Results - last 24 hr 06/22/19 09:29: Specimen Source Right brachial, O2 % 21, ABG pH 7.42, ABG pCO2 46.1 H, ABG pO2 79.3 L, ABG HCO3 29.4 H, ABG Total CO2 30.8 H, ABG O2 Saturation 95, ABG Base Excess 4.9 H, Serafin Test Acceptable 06/22/19 09:55: Urine Color Yellow, Urine Appearance Sl cloudy, Urine pH 6.0, Ur Specific [place] 1.020, Urine Protein Trace, Urine Glucose (UA) Negative, Urine Ketones Negative, Urine Blood Negative, Urine Nitrate Positive, Urine Bilirubin Negative, Urine Urobilinogen 0.2, Ur Leukocyte Esterase 1+ A, Urine WBC 20-50, Ur Squamous Epith Cells Occasional, Urine Bacteria 4+ 06/22/19 09:55: WBC 6.0, RBC 3.71 L, Hgb 10.2 L, Hct 33.8 L, MCV 91.3, MCH 27.4, MCHC 30.1 L, RDW 17.1, Plt Count 316, MPV 7.4, Neut % (Auto) 66.8, Lymph % (Auto) 25.5, [place] % (Auto) 5.3, Eos % (Auto) 2.2, Baso % (Auto) 0.3, Neut # (Auto) 4.0, Lymph # (Auto) 1.5, [place] # (Auto) 0.3, Eos # (Auto) 0.1, Baso # (Auto) 0.0 06/22/19 09:55: Sodium 153 H*, Potassium 4.3, Chloride 110 H, Carbon Dioxide 33 H, Anion Gap 14.3, BUN 51 H, Creatinine 2.38 H, Estimated Creat Clear 28, Estimated GFR 19 L*, Est GFR ( Amer) 24 L, Glucose 92, Calcium 10.0, Total Bilirubin 0.2, AST 22, ALT 26, Alkaline Phosphatase 101, Troponin I < 0.02, Total Protein 7.9, Albumin 3.5, Globulin 4.4 H, Albumin/Globulin Ratio 0.8 L, Salicylates 1.5 L, Acetaminophen 0 L, Carbamazepine 8.0 06/22/19 09:55: Lactate 1.2 06/22/19 09:55: Urine Opiates Screen Negative, Urine Methadone Screen Negative, Ur Barbituates Screen Positive H, Ur Phencyclidine Scrn Negative, Ur Amphetamines Screen Negative, U Benzodiazepines Scrn Negative, Urine Cocaine Screen Negative, U Marijuana (THC) Screen Negative 06/22/19 09:55: Magnesium 2.5 H 06/23/19 06:03: WBC 5.6, RBC 3.26 L, Hgb 9.1 L D, Hct 29.3 L, MCV 89.9, MCH 27.9, MCHC 31.0 L, RDW 17.0, Plt Count 264, MPV 7.5, Neut % (Auto) 60.9, Lymph % (Auto) 29.3, [place] % (Auto) 7.0, Eos % (Auto) 2.5, Baso % (Auto) 0.3, Neut # (Auto) 3.4, Lymph # (Auto) 1.6, [place] # (Auto) 0.4, Eos # (Auto) 0.1, Baso # (Auto) 0.0 06/23/19 06:03: Sodium 148 H, Potassium 3.9, Chloride 110 H, Carbon Dioxide 31, Anion Gap 10.9, BUN 38 H D, Creatinine 1.69 H D, Estimated Creat Clear 28, Estimated GFR 29 L, Est GFR ( Amer) 35 L D, Glucose 137 H D, Calcium 8.8 D, Magnesium 2.2 D I & O for Last 24 hours: Intake & Output 06/20/19 06/21/19 06/22/19 06/23/19 11:59 11:59 11:59 11:59 Intake Total 2220 / 2220 Output Total 800 / 800 Balance 1420 / 1420 Weight 153 lb 3 oz 156 lb 2 oz Microbiology Reports for the Last 24 Hours: Microbiology 06/22/19 10:55 Sputum - Expectorated Sputum Gram Stain - Final Narrative: Patient recognizes me, is responsive. Lungs have good air movement. Abdomen soft. Heart rate regular. No ankle edema. Previous neurologic examinations are unchanged Assessment and Plan (1) Acute kidney injury superimposed on CKD Current visit: Yes Status: Acute Category: Medical Code(s): N17.9 - Acute kidney failure, unspecified; N18.9 - Chronic kidney disease, unspecified (2) Dehydration Current visit: Yes Status: Acute Category: Medical Code(s): E86.0 - Dehydration (3) History of CVA (cerebrovascular accident) Current visit: Yes Status: Acute Category: Medical Code(s): Z86.73 - Personal history of transient ischemic attack (TIA), and cerebral infarction without residual deficits (4) Hypernatremia Current visit: Yes Status: Acute Category: Medical Code(s): E87.0 - Hyperosmolality and hypernatremia (5) Right hemiparesis Current visit: Yes Status: Acute Category: Medical Code(s): G81.91 - Hemiplegia, unspecified affecting right dominant side (6) Seizure disorder Current visit: Yes Status: Chronic Category: Medical Code(s): G40.909 - Epilepsy, unspecified, not intractable, without status epilepticus (7) CHF (congestive heart failure) Current visit: No Status: Acute Category: Medical Code(s): I50.9 - Heart failure, unspecified (8) Hemiplegic cerebral palsy Current visit: No Status: Chronic Category: Medical Code(s): G80.8 - Other cerebral palsy (9) UTI (urinary tract infection) Current visit: Yes Status: Acute Category: Medical Code(s): N39.0 - Urinary tract infection, site not specified - Assessment and plan all Dx Assessment and Plan for all problems:: Patient has responded to acute hospital treatment. I discussed with her sister-who is her guardian/healthcare surrogate and sister's her overall slight improvement but poor prognosis and discussed possibility of hospice care and they are agreeable to discussing her case with hospice.
[2019-06-24 07:00] LABS: Basophils % 0.4 % (0.1-2.0); Eosinophils # 0.1 K/mm3 (0.0-0.4); Eosinophils % 1.8 % (0.1-12.0); Hematocrit 29.3 % (37.0-47.0); Hemoglobin 9.1 g/dL (12.2-16.2); Lymphocytes # 1.5 K/mm3 (0.7-4.5); Lymphocytes % 25.8 % (10-50); Mean Corpuscular HGB Conc 31.2 g/dL (31.8-35.4); Mean Corpuscular Volume 92.4 fl (81-99); Mean Platelet Volume 7.7 fl (7.4-10.4); Monocytes # 0.3 K/mm3 (0.1-1.0); Monocytes % 5.5 % (1.7-9.3); Neutrophils # 3.9 K/mm3 (1.8-7.8); Neutrophils % 66.6 % (37.0-80.0); Platelet Count 273 K/mm3 (142-424); Red Blood Count 3.17 M/mm3 (4.20-5.40); Red Cell Distribution Width 17.6 % (11.5-17.5); White Blood Count 5.8 K/mm3 (4.8-10.8)
[2019-06-24 07:08] LABS: Anion Gap 9.5 mEq/L (5-15); Calcium 8.5 mg/dL (8.5-10.1)
--- NOTE | 2019-06-24 09:59 | Discharge Summary ---
General - General Admission date:: 06/22/19 Discharge date: 06/24/19 HPI HPI: Ms. Cabrera is a 84 year old female with a h/o hemiplegic cerebral palsy with associated MR, seizure disorder, CVA, HTN and recurrent UTI who presented to the ER from her intermediate due to concern by family for worsening mental status, decline in cognitive function, poor p.o. intake over the past month. Her sister who is at bedside states that she has just not been herself for the past month. Patient has been disinterested in eating. Letting food and liquids just roll out of her mouth. Taking it extremely long time to swallow. They state she is been more fatigued in the afternoons wanting to just stay in her room and rest. This is unlike her, giving them concern for progressive seizure disorder, or TIAs/CVAs. On presentation to the ER patient was found to have a stable CT scan with no acute pathology. Her labs were significant for hypernatremia, worsening acute kidney injury on chronic kidney disease. Chest x-ray negative for pneumonia. Urine concerning for UTI with positive white blood cells, leuk esterase, positive nitrate. Patient was admitted for IV antibiotics, IV fluids, further evaluation. Unable to obtain review of systems due to somnolence. Family at bedside denies that patient has had any complaints as of late other than worsening confusion and fatigue/somnolence. Does not appear to be short of breath or in pain. Hospital Course Hospital Course: Ms. Cabrera was admitted for altered mental status, hypernatremia, dehydration with acute kidney injury. Found to have urinary tract infection. Initiated treatment for her elect light disturbance, kidney dysfunction, urinary tract infection. Patient had significant response with normalization of her hypernatremia. Her kidney function returned to baseline for her. And she is remained afebrile during the admission. Patient assessed by speech for swallowing and able to tolerate a modified diet. At this time she is medically stable showing significant improvement for discharge back to her nursing facility. Will discharge with plan to complete course of Invanz for urinary tract infection. Plan is 1 g daily for the next 7 days. Additionally discussed with family the benefit of possibly transitioning care to hospice. Recommend consult placed once patient back at intermediate and finish his antibiotics to assess for appropriateness for hospice care moving forward. Patient had no complaints this morning. Objective Vital signs: Temp Pulse Resp BP Pulse Ox 98.4 F 58 L 20 173/57 H 95 06/24/19 08:00 06/24/19 08:00 06/24/19 08:00 06/24/19 08:00 06/24/19 08:00 Narrative: Patient recognizes me, is responsive. Lungs have good air movement. Abdomen soft. Heart rate regular. No ankle edema. Previous neurologic examinations are unchanged Results Labs on day of discharge: Labs from last 24 hours 06/24/19 06/24/19 06:25 06:25 WBC 5.8 RBC 3.17 L Hgb 9.1 L Hct 29.3 L MCV 92.4 MCH 28.9 MCHC 31.2 L RDW 17.6 H Plt Count 273 MPV 7.7 Neut % (Auto) 66.6 Lymph % (Auto) 25.8 [place] % (Auto) 5.5 Eos % (Auto) 1.8 Baso % (Auto) 0.4 Neut # (Auto) 3.9 Lymph # (Auto) 1.5 [place] # (Auto) 0.3 Eos # (Auto) 0.1 Baso # (Auto) 0.0 Sodium 145 Potassium 3.5 Chloride 110 H Carbon Dioxide 29 Anion Gap 9.5 BUN 23 H D Creatinine 1.24 H D Estimated Creat Clear 41 Estimated GFR 41 L Est GFR ( Amer) 50 L D Glucose 128 H Calcium 8.5 Preliminary micro results at discharge 06/22/19 10:55 Sputum Culture - Preliminary Sputum - Expectorated Sputum Gram Negative Rods Gram Negative Rods#2 DS: Diagnosis - Discharge Diagnosis (1) Acute kidney injury superimposed on CKD Status: Resolved (2) Dehydration Status: Resolved (3) History of CVA (cerebrovascular accident) Status: Chronic (4) Hypernatremia Status: Resolved (5) Right hemiparesis Status: Chronic (6) Seizure disorder Status: Chronic (7) CHF (congestive heart failure) Status: Chronic (8) Hemiplegic cerebral palsy Status: Chronic (9) UTI (urinary tract infection) Status: Acute Discharge Plan - Patient Discharge Instructions ACTIVITY: Continue current activity DIET: continue same diet Patient Instructions: DI for Kidney Failure, DI for Dehydration -- Adult, DI for Urinary Tract Infection (UTI), DI for Hypernatremia - Follow up Plan Disposition: Xfer Intermediate Care [facility] Home Medications: Home Medications Medication Instructions Recorded Confirmed Type Albuterol Sulfate [Albuterol 0.63 mg IH TID 12/12/17 06/22/19 History Sulfate 0.63mg/3ml Neb] Apixaban [Eliquis 2.5mg tab] 2.5 mg PO BID 12/12/17 06/22/19 History Benzonatate [Tessalon Perle 100mg 200 mg PO TID 12/12/17 06/22/19 History Cap] Buspirone HCl [Buspar 10mg 10 mg PO HS 12/12/17 06/22/19 History tablet] Fluticasone Propionate [Flonase 1 spray NS DAILY 12/12/17 06/22/19 History Allergy Relief NS] Furosemide [Furosemide 40MG tAB] 20 mg PO DAILY 12/12/17 06/22/19 History Gabapentin [Gabapentin 100mg Cap] 100 mg PO TID 12/12/17 06/22/19 History Loratadine [Claritin 10mg Tablet] 10 mg PO DAILY 12/12/17 06/22/19 History Mag Hydrox/Aluminum Hyd/Simeth 30 ml PO DAILYP PRN 12/12/17 06/22/19 History [Maalox 30ml UDC] Oxybutynin Chloride [Ditropan Xl] 5 mg PO DAILY 12/12/17 06/22/19 History PHENobarbital [PHENobarbital 32.4 mg PO 1200,199912/12/17 06/22/19 History 32.4mg Tablet] Pantoprazole Sodium [Protonix 40mg 40 mg PO DAILY 12/12/17 06/22/19 History (granule) packet] Polyethylene Glycol 3350 [Miralax 17 gm PO DAILYP PRN 12/12/17 06/22/19 History 17gm Packet] Pravastatin Sodium [Pravachol 20mg 20 mg PO HS 12/12/17 06/22/19 History Tablet] carBAMazepine [Tegretol] 200 mg PO BID 12/12/17 06/22/19 History levETIRAcetam [Keppra 500mg tablet] 500 mg PO BID 12/12/17 06/22/19 History Acetaminophen [Acetaminophen Extra 500 mg PO BID 04/08/19 06/22/19 History Strength] PHENobarbital [PHENobarbital 64.8 mg PO DAILY 04/08/19 06/22/19 History 32.4mg Tablet] Tizanidine HCl [Zanaflex 4mg 4 mg PO 1200 04/09/19 06/22/19 History tablet] Buspirone HCl [Buspar 5mg tablet] 5 mg PO DAILY 06/22/19 06/22/19 History Dicyclomine HCl 20 mg PO TID 06/22/19 06/22/19 History Ertapenem Sodium [Invanz 1gm Vial] 1 gm IM Q24H 7 Days vial 06/24/19 Rx Prescriptions/Medication Reconciliation: New Ertapenem Sodium [Invanz 1gm Vial] 1 gm IM Q24H 7 Days vial Continued Fluticasone Propionate [Flonase Allergy Relief NS] 1 spray NS DAILY Polyethylene Glycol 3350 [Miralax 17gm Packet] 17 gm PO DAILYP PRN PRN Reason: Constipation Loratadine [Claritin 10mg Tablet] 10 mg PO DAILY Oxybutynin Chloride [Ditropan Xl] 5 mg PO DAILY Furosemide [Furosemide 40MG tAB] 20 mg PO DAILY carBAMazepine [Tegretol] 200 mg PO BID Benzonatate [Tessalon Perle 100mg Cap] 200 mg PO TID Gabapentin [Gabapentin 100mg Cap] 100 mg PO TID Pravastatin Sodium [Pravachol 20mg Tablet] 20 mg PO HS Acetaminophen [Acetaminophen Extra Strength] 500 mg PO BID Tizanidine HCl [Zanaflex 4mg tablet] 4 mg PO 1200 Dicyclomine HCl 20 mg PO TID levETIRAcetam [Keppra 500mg tablet] 500 mg PO BID Pantoprazole Sodium [Protonix 40mg (granule) packet] 40 mg PO DAILY PHENobarbital [PHENobarbital 32.4mg Tablet] 32.4 mg PO 1200,2000 Mag Hydrox/Aluminum Hyd/Simeth [Maalox 30ml UDC] 30 ml PO DAILYP PRN PRN Reason: Nausea And Vomiting Buspirone HCl [Buspar 10mg tablet] 10 mg PO HS Apixaban [Eliquis 2.5mg tab] 2.5 mg PO BID Albuterol Sulfate [Albuterol Sulfate 0.63mg/3ml Neb] 0.63 mg IH TID PHENobarbital [PHENobarbital 32.4mg Tablet] 64.8 mg PO DAILY Buspirone HCl [Buspar 5mg tablet] 5 mg PO DAILY
== END 2019-06-24 11:26 | DRG 683 ==
LOC: 2ND 09:29 → ER 09:29 → OBSVTOIN 12:00 → 2ND 12:01
PROVIDERS: ADMIT Internal Medicine Adolescent Medicine; ATTEND Internal Medicine Adolescent Medicine
CPT/HCPCS: 36415; 70371; 70450; 71010; 71045; 80048; 80053; 80156; 80177; 80305; 80329; 81001; 82803; 83605; 83735; 84484; 85025; 87040; 87070; 87077; 87086; 87088; 87186; 87205; 92611; 93005; 96365; 99284; J1335; J1953